=== PATIENT | male | born 1950 | race Caucasian/White ===

== ENCOUNTER 2020-05-13 13:50 | Outpatient (CLI) | payer MEDICAID, SELFPAY ==
--- NOTE | 2020-05-13 13:59 | CT_ITS ---
WS: [id number] CT ABDOMEN AND PELVIS NONCONTRAST HISTORY: HEMATURIA TECHNIQUE: Imaging performed through the abdomen and pelvis. Coronal and sagittal reformats are submi tted. All CT scans at [facility] use at least one of these dose optimization techniques: automated exposure control; mA and/or kV adjustment per patient size (includes targeted exams where d ose is matched to clinical indication); or iterative reconstruction. DLP: 1159.69 mGycm COMPARISON: None available. Lower thorax: Severe emphysematous changes at the lung bases with scarring. Heart size is normal. Sma ll hiatal hernia. Liver: Liver is slightly small and the surface is irregular. No mass or bile duct dilatation on this unenhanced study. Gallbladder: Cholelithiasis without evidence for acute cholecystitis. No bile duct dilatation. Pancreas: Mild diffuse pancreatic atrophy. Normal size duct. No mass or pancreatitis. Spleen: Normal size spleen with granulomata. Adrenal glands: Normal. No mass. Right kidney: Normal size kidney with no obstruction or calcification. Vascular calcification in the central renal pelvis. Ureter is normal caliber. Left kidney: Mild perinephric stranding with no obstruction. No calcifications. Normal ureter. Aorta: Moderate to severe atherosclerosis abdominal aorta. No aneurysm. Atherosclerosis continues int o the common iliac arteries. No free fluid, intraperitoneal air or significant lymphadenopathy. GI tract: The appendix is top normal size. No adjacent inflammation. No GI tract obstruction. Abdominal wall: Negative. No hernia. Pelvis: Moderately well distended urinary bladder. There is mild diffuse bladder wall thickening and irregularity. There is a more focal bladder wall thickening posteriorly and to the LEFT. There is a c alcification extending into the bladder which does not appear contiguous with the prostate gland. Pro state gland is enlarged and encroaches into the bladder. Osseous structures: Degenerative spondylitic changes. CT/CT kidney stone [id number] IMPRESSION: 1. No renal calcification or obstruction. 2. Abnormal urinary bladder wall. There is bladder wall thickening with an adj acent calcification to the LEFT and posteriorly. Bladder wall neoplasm needs to be excluded. 3. Prostate gland enlargement encroaching into the urinary bladder. The calcif ications and/or soft tissue thickening on the LEFT appears separate from the pr ostate gland. 4. Moderate atherosclerosis aorta. 5. Cholelithiasis without acute cholecystitis. 6. Severe emphysema at the lung bases.
== END 2020-05-13 13:51 | disposition home or self-care (01) ==
LOC: RADWPI 13:54
PROVIDERS: PCP Family Medicine; Visit Provider Family Medicine
DX: R31.9 Hematuria, unspecified (principal); N40.0 Benign prostatic hyperplasia without lower urinary tract symptoms; I70.0 Atherosclerosis of aorta; K80.20 Calculus of gallbladder without cholecystitis without obstruction; J43.9 Emphysema, unspecified
CPT/HCPCS: 74176

== ENCOUNTER → 2020-06-04 15:51 | Outpatient (BNVA) | payer OTHER, SELFPAY | PROVIDERS: PCP Family Medicine; Visit Provider Urology | DX: Z11.59 Encounter for screening for other viral diseases (principal) | CPT/HCPCS: 81001; 87635 ==

== ENCOUNTER 2020-06-10 08:07 | Observation (INO) | payer MEDICAID, SELFPAY ==
[2020-06-09 12:58] VITALS: BMI 25.1
[2020-06-10] VITALS (14 sets, daily range): BP systolic 121–147; BP diastolic 63–88; PULSE 48–77; RESP 15–18; TEMP 36.1–37.3; O2SAT 93–100
[2020-06-10] MEDS: sodium chloride 0.9% 1,000 ML 30 ML IV (06:22)
--- NOTE | 2020-06-10 06:28 | W.PM.OPSUD ---
Surgery/Procedure H&P Update DATE OF PROCEDURE: June 10, 2020 DATE H&P PERFORMED: 06/04/20 H&P UPDATE INFORMATION: I have reviewed H&P completed within last 30 days, I have examined patient prior to procedure, No changes to prior documentation and H&P is in [facility] EMR on date indicated CHANGES TO PREVIOUS DOCUMENTATION: Reviewed again the findings from the clinic. Discussed plans expectations follow-up with the who is present today To proceed as planned previously. PREOP DIAGNOSIS: Newly diagnosed bladder cancer PLANNED PROCEDURE: Operation Date: 06/10/20 07:00 Proposed Procedures p Cystoscopy 05255 D49.4(Not Applicable) - Fredrick Michale MD s Transurethral Resection Bladder Tumor(Not Applicable) - Fredrick Michael MD
--- NOTE | 2020-06-10 06:33 | P.ANESASSM_ITS ---
Pre-Anesthetic Assessment Pre-Anesthetic Assessment: Height/Weight: Height 1.75 m Weight 77.111 kg Temp Pulse Resp BP Pulse Ox 97.2 F L 60 16 132/79 95 06/10/20 06:07 06/10/20 06:07 06/10/20 06:07 06/10/20 06:07 06/10/20 06:07 Preop Diagnosis: Newly diagnosed bladder cancer Proposed Procedure: Operation Date: 06/10/20 07:00 Proposed Procedures p Cystoscopy 27907 D49.4(Not Applicable) - Fredrick Michael MD s Transurethral Resection Bladder Tumor(Not Applicable) - Fredrick Michael MD Familial anesthetic complications: none Was Beta Carrington taken within 24 hours: N/A Last intake: Intake Last Liquid Date 06/09/20 Last Liquid Time 20:00 Last Solid Date 06/09/20 Last Solid Time 20:00 Social: Social History: No alcohol and No tobacco Comment: former smoker Exam: Pre-Anes Outpt Exam: alert, oriented x 3, clear to auscultation bilaterally and regular rate & rhythm Airway: Cervical ROM: WNL MP: 3 Dentition: False and Partials Pulmonary: Pulmonary: COPD Anesthetic Plan: ASA status: 2 Anesthesia: General Risk of > 500 ml blood loss (7ml/kg in children): No Meds/Allergies Current Medications: Current Medications Generic Name Dose Route Start Last Admin Trade Name Freq PRN Reason Stop Dose Admin Sodium Chloride 1,000 mls @ 30 ml s/hr 06/10/20 06:15 06/10/20 06:22 Sodium Chloride 0.9% IV 06/11/20 06:14 30 mls/hr .Q24H JUAN Administration PFSH Anesthesia PFSH: Medical History COPD (chronic obstructive pulmonary disease) Gross hematuria Surgical History Hx of hernia repair Family History Father , at age 84 COPD (chronic obstructive pulmonary disease) Mother , at age 85 MRSA (methicillin resistant staph aureus) culture positive CAD (coronary artery disease) Social History Smoking and tobacco status: former smoker Alcohol intake: never Adopted: No Caregiver/support person: No Lives independently: Yes Marital status: Current occupational status: employed and retired 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
--- NOTE | 2020-06-10 06:34 | P.OP_ITS ---
Operative Report Date of procedure: June 10, 2020 Pre-op Diagnosis: Newly diagnosed bladder cancer Post-op diagnosis: same Procedure Done: Cystoscopy, transurethral resection of bladder tumor large Specimens removed/disposition: Bladder tumor Pathology: Bladder tumor Surgeon: Fernanda Anesthesia: General Estimated blood loss: Minimal Urine output: Not measured Complications: None Findings: 2 distinct areas of bladder tumor identified. One lateral to the left ureteral orifice and the second on the posterior floor. Both completely resected deeply into the bladder wall. Muscle visualized. Did not appear to be muscle invasive clinically. Condition: stable Disposition: PACU Brief History: Levar is a very pleasant 69-year-old white male who was recently evaluated for gross hematuria and with CT scan findings it demonstrated what appeared to be suspicious lesion in the bladder with dystrophic calcification. 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 Procedure: After routine preoperative evaluation examination and obtaining of informed consent he was taken to the operating suite on 06/10/2020 where general anesthesia was administered without difficulty after appropriate timeout was performed, SCDs confirmed to be functioning, preoperative antibiotics administered, beta-morenita protocol confirmed. Prepped and draped in usual sterile fashion in dorsolithotomy position pain careful attention to avoiding pressure points. 21 Faroese cystoscope with 30 degree lens was introduced into the urethral meatus and advanced into the bladder under videoscopy. Bladder was systematically examined with 30 and 70 degree lenses. The lesion was again identified in the expected position with appearance of satellite lesions around the base. There is also a second lesion on the posterior floor. Total diameter >5 cm. The urethra was calibrated with Hardy sounds and easily accommodated 30 Faroese. 2% lidocaine jelly was instilled into the urethra then a 25 Faroese continuous flow resectoscope sheath with visual obturator in place was advanced into the bladder without difficulty. The bipolar gyrus system was utilized with the super loop for resection and the button probe for fulguration of the base. Resection was initiated on the most intraluminal aspect of the tumor and it was resected down to the base with deep sampling of the muscle. The second tumor was resected in the same way. Satellite lesions were also resected. All chips were removed from the bladder with an Ellik evacuator. The button probe was used to obtain hemostasis with fulguration of the base. Final inspection revealed complete hemostasis, no additional lesions, no specimens within the bladder. Pathology was labeled as left trigone and posterior floor for the 2 separate specimens. Bladder was drained with a 20 Faroese three-way Britton catheter with no CBI initiated. Tolerated procedure well without complications and was awakened in the operating room and returned to Room in stable condition. PLANS: 1. Admit to observation status 2. Mitomycin instillation this afternoon 3. Expect discharge tomorrow if all goes well.
[2020-06-10] MEDS: lidocaine 2% Urojet 20 mL TOPICAL (07:13)
--- NOTE | 2020-06-10 08:10 | PM.PACU ---
PACU note Post-Anesthesia Exam: awake and vital signs stable Disposition: admitted
[2020-06-10] MEDS: lactated ringers 1,000 ML 30 ML IV (09:01)
[2020-06-10] MEDS: ceFAZolin 1,000 MG in sodium chloride 0.9% (plus) 50 ML 100 MG IV ×2 (15:04→22:54)
--- NOTE | 2020-06-10 18:39 | PM.MISC ---
Miscellaneous Note Purpose of Documentation: Intravesical chemotherapy instillation by physician: Mitomycin 40 mg instilled sterilely into the bladder. Both the drainage and irrigation port were plugged. Maintain for no more than 1 hour. Can drain sooner if becomes uncomfortable. Catheter will stay in overnight. Can restart CBI if urine becomes bloody. The procedure was explained in detail. Patient gave informed consent.
--- NOTE | 2020-06-10 19:05 | PC.NURSE ---
This nurse was able to pull the Mitomycin by using new Britton cath bag and tube. Said equipment was discarded in the [employer] bag. Patient tolerated well, no pain or discomfort.
[2020-06-11] VITALS (9 sets, daily range): BP systolic 104–134; BP diastolic 58–74; PULSE 60–79; RESP 18; TEMP 36.9–37.5; O2SAT 92–94
--- NOTE | 2020-06-11 00:51 | PC.NURSE ---
Patient is reporting no pain, and is having good UO.
--- NOTE | 2020-06-11 03:00 | ANE.PACU2 ---
Inpatient post-anesthesia follow up: Airway intact: Yes Vital signs: Temperature 98.4 F Pulse Rate 77 Respiratory Rate 18 Blood Pressure 122/68 Pulse Oximetry 92 Oxygen Delivery Me thod Room Air Oxygen Flow Rate 8 Fraction of Inspir ed Oxygen Hydration adequate: Yes Nausea and vomiting: No Pain level: 1 Mental status: Baseline Additional Comments: patient complaining only of dry throat
--- NOTE | 2020-06-11 06:34 | PC.NURSE ---
Patient has slept most of the night, has reported no pain, good UO, otherwise no discomfort related urinary system. Patient is eager to leave.
--- NOTE | 2020-06-11 07:33 | P.DS_ITS ---
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 Intraoperative findings included 2 areas resected with total >5 cm. On the evening of his surgery mitomycin 40 mg in 40 cc normal saline was instilled into the bladder and he tolerated it well for 40 minutes and then it was drained. Urine remained clear. Catheter removed on postoperative day #1 with good emptying and no significant hematuria. Discharged on the morning of postoperative day #1 in stable condition for continued convalescence at home. We will have a phone conversation next week to review the pathology report. Plan for surveillance cystoscopy in 2 months. Reviewed symptoms of concern for which she should call. Focused again discharge on the importance of avoiding straining which could induce bleeding. Physical Exam Const: COMMON NORMALS: no acute distress, alert and well nourished GENERAL APPEARANCE: well kempt and well developed ORIENTATION/CONSCIOUSNESS: not confused Neck/C-Spine: COMMON NORMALS: full ROM Resp: COMMON NORMALS: normal respiratory effort EFFORT & INSPECTION: No labored and No Actively coughing Neuro: COMMON NORMALS: no focal motor deficits SENSORIUM/ORIENTATION: Yes alert Psych: COMMON NORMALS: mental status grossly normal APPEARANCE: Yes grossly normal and Yes well kempt ATTITUDE: Yes calm and Yes engaged Skin: COMMON NORMALS: no rashes or lesions noted and no jaundice GENERAL SKIN EXAM: no rashes or lesions noted Urinary Catheter Management^: 3-way Urethral CBI: Cath Placed During This Visit: yes Reason for Continuing Indwelling Catheter: Other Urinary Catheter Date of Insertion: 06/10/20 Urinary Catheter Time of Insertion: 07:35 Discharge Data Data Completed and Pending: Pending at discharge Category Date Time Status Pathology: Surgic al [PTH] Routine Pth 06/10/20 08:10 Received Vitals: Last Vital Signs Temp 98.4 F 06/11/20 04:00 Pulse 77 06/11/20 04:00 Resp 18 06/11/20 04:00 BP 122/68 06/11/20 04:00 Pulse Ox 92 06/11/20 04:00 Discharge Plan Discharge Patient Disposition: Home Condition: Stable Prescriptions: Continued Trelegy Ellipta 100-62.5-25 mcg blister with device 1 inh INHALATION DAILY RF: 0 albuterol sulfate 0.63 mg/3 mL solution for nebulization 0.63 mg INHALATION QID PRN (Reason: Shortness Of Breath) RF: 0 antitrypsin 1,000 mg IV Q7D RF: 0 Discharge Orders: Discharge Order (Routine); Ordered 06/11/20 Ordered By: Fredrick Michael Referrals: Fredrick Michael MD [Physician] - 08/13/20 2:45 pm (Please follow with Dr Tobin TuesdayAugust 13 at 2:45 pm) Discharge Diet: Usual diet Discharge Activity: Limit activity as instructed Activity Restrictions/Additional Instructions: 1. Avoid lifting >10 pounds for about 3 weeks. If the urine becomes more bloody extend that interval. 2. Please call next week for review of pathology report if you have not already heard from my office 3. We will plan on rescoping your bladder in about 2 months. 4. It is possible that we may need to institute bladder instillation treatment for a more aggressive bladder cancer but that decision will be made on follow- up. 5. Please call if you have any concerns or questions. The hospital tree feller operator can always reach me. 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
--- NOTE | 2020-06-11 09:53 | PC.RESP ---
PULMONARY REHAB INFORMATION SENT TO PATIENT.
[2020-06-11] MEDS: lactated ringers 1,000 ML 30 ML IV (10:36)
--- NOTE | 2020-06-11 12:53 | PC.NURSE ---
1030 - patient Urinated a few drops of urine, hematuria was noted. approx. 10 ml. Bladder Scanned after void with 0ml in bladder. Will continue to closely montior. SMW, DIRECTOR OF GLOBAL TALENT
--- NOTE | 2020-06-11 13:29 | PC.NURSE ---
VOIDING: Patient voided 5th container with no hematuria present. Urine is clear light straw colored. BLadder scan is 97ml at this time. Dr. Michael notified and is ok for patient to discharge home. JOHNW,EDWARD
--- NOTE | 2020-06-11 14:08 | PC.CHAP ---
Pastoral Care Encounter/Spiritual Assessment Type of Contact [] Declined epic cadence analyst visit [] Patient/Family/Request visit [] Outpatient visit [] Follow-up visit [] Physician referral [] Code/Alert [X] Routine visit [] Staff referral [] Actively dying [] Patient sleeping [] Family support [] [] Out of room [] Palliative care [] [] Receiving care in room [] Pre-surgical visit [] Trauma [] Long length of stay [] ICU visit [] Other: Relational/Emotional Strength [] Patient feels connected with others/family/visitors/staff [] Distress [] Loneliness/isolation [] Abandonment Spirituality of Patient [] Person of Hyun [] Attends Scientologist of their Hyun [] Believes in Prayer [] Reads Bible or Judaism materials [] There are Spiritual issues to be addressed Salt Lifter Interventions [] Prayer [] Active listening [] Non-anxious presence [] Spiritual/emotional support [] Crisis/trauma care [] Spiritual counseling [] Bereavement support [] Provided bereavement packet [] Provided Bible/devotional materials [] Provided toy/stuffed animal, coloring book to patient or family member [] Provided Communion [] Anointing/Shipman [] Salvation [] Completed spiritual assessment [] Other: Impact on Illness or Injury [] Angry [] Fearful [] Anxious [] Often cries [] Exhaustion [] Unable to work [] Unable to attend druze [] Unable to walk/stand [] Unable to read [] Unable to drive [] Unable to eat/drink [] Unable to sleep [] Unable to be with family [] Patient intubated [] Other: Summary Time spent with patient
== END 2020-06-11 15:54 | disposition home or self-care (01) ==
LOC: MEDSURG 08:07
PROVIDERS: Admitting Provider Urology; PCP Family Medicine; Visit Provider Urology
PROC: 0TJB8ZZ Inspection of Bladder, Via Natural or Artificial Opening Endoscopic (ICD-10-PCS; CPT 52000; 2020-06-10 07:00)
PROC: 0TBB8ZZ Excision of Bladder, Via Natural or Artificial Opening Endoscopic (ICD-10-PCS; CPT 52240; 2020-06-10 07:00)
DX: C67.8 Malignant neoplasm of overlapping sites of bladder (principal); J44.9 Chronic obstructive pulmonary disease, unspecified; Z87.891 Personal history of nicotine dependence
CPT/HCPCS: 52240; 12345; 88305; 94640; 96361; 96365; G0378; J0690; J2405; J2704; J2710; J3010; J3490; J7030; J7611; J9280

== ENCOUNTER 2020-07-11 06:58 | Outpatient (CLI) | payer MEDICAID, SELFPAY ==
--- NOTE | 2020-07-11 08:00 | CT_ITS ---
WS: [id number] CT ABDOMEN PELVIS TECHNIQUE: Noncontrast CT of the abdomen and contrast-enhanced CT of the abdomen and pelvis with magan nal and sagittal reformatted images. CLINICAL INFORMATION: BLADDER CANCER COMPARISON: CT May 13, 2020 DLP: 1032.[address] scans at [facility] use at least one of these dose optimization techniques: automat ed exposure control; mA and/or kV adjustment per patient size (includes targeted exams where dose is matched to clinical indication); or iterative reconstruction. FINDINGS: Again seen is bladder wall thickening with calcification eccentric to the left involving the dorsal l eft bladder. Findings suspicious for bladder neoplasm. This is similar to the prior examination. Hete rogeneous enhancing enlarged nodular prostate with indentation on the urinary bladder. Recommend santiago elation for PSA. Seminal vesicles appear unremarkable. Normal renal parenchymal enhancement. No hydronephrosis. Adrenal glands are normal. Advanced emphysem atous changes in the lung bases. Subsegmental atelectasis in both lower lobes. Noncalcified nodule le ft lower lobe measuring 4.4 mm diffuse fatty infiltration of the liver. Normal portal vein and spleni c vein. Cholelithiasis. Splenic granulomas. Small esophageal hiatal hernia. Mild fatty atrophy of the pancreas. Aortic calcification. Slightly prominent aortocaval lymph nodes measuring 8 mm. No periaor tic or retroperitoneal lymphadenopathy. No pelvic lymphadenopathy. No inguinal lymphadenopathy. Normal sigmoid colon. No evidence of high-grade obstruction. Normal appendix. CT/CT abdomen pelvis wo/w [id number] IMPRESSION: 1. Again seen is left eccentric bladder wall thickening with calcifications tijerina spicious for neoplasm. This is similar in appearance. 2. Heterogeneously enhancing nodular enlarged prostate with indentation on the bladder.Correlation PSA. Normal seminal vesicles. 3. No pelvic or inguinal lymphadenopathy. 4. A few slight prominent aortocaval lymph nodes largest measuring 8 mm. 5. Cholelithiasis. 6. Normal renal parenchymal enhancement. No hydronephrosis. 7. 4.4 mm left lower lobe noncalcified pulmonary nodule. Recommend 12 month fo llow-up.
[2020-07-11 08:03] LABS: Blood Urea Nitrogen 24 mg/dL (8-23); Glomerular Filtration Rate 50.2 mL/min (90-130)
[2020-07-11] MEDS: iodixanol 320 mg/mL 100mL Btl IV (08:32)
== END 2020-07-11 06:59 | disposition home or self-care (01) ==
PROVIDERS: PCP Family Medicine; Visit Provider Urology
DX: C67.4 Malignant neoplasm of posterior wall of bladder (principal); N40.0 Benign prostatic hyperplasia without lower urinary tract symptoms; K80.20 Calculus of gallbladder without cholecystitis without obstruction; R91.1 Solitary pulmonary nodule
CPT/HCPCS: 36415; 74178; 81003; 82565; 84520

== ENCOUNTER 2020-07-16 10:00 | Outpatient (CLI) | payer MEDICAID, SELFPAY ==
--- NOTE | 2020-07-16 15:26 | ONC CON_ITS ---
Dr. Vega New Patient Note Patient: Levar Fitzgerald Unit #: [id number]: 1950 Dicatated By: Carey Vega M.D.Date of Visit: Jul 16, 2020 Onc MED New Patient/Consult Referring Physician: Dr. Fredrick Michael M.D. History of Present Illness: Mr. Levar Fitzgerald, is a 69-year-old gentleman with history of gross hematuria initially seen by urology on June 04, [address] scan of abdomen pelvis shows bladder mass and patient underwent cystoscopy/TURBT on June 10, 2020 and intraoperative findings include 2 areas of transitional cell carcinoma, one lateral to the left ureteral orifice and other on the posterior floor. 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 CT scan of abdomen pelvis done on July 11, 2020 showed left eccentric bladder wall thickening with calcification suspicious for neoplasm. Heterogeneously enhancing nodular enlarged prostate with indentation on the bladder. Normal seminal vesicles. A few slight prominent aorto caval lymph nodes largest measuring 8 mm. 4.4 mm left upper lobe noncalcified pulmonary nodule follow-up scan in 12 months recommended. Patient was seen by Dr. Michael different treatment options were discussed, patient was referred to oncology clinic to discuss about role of chemotherapy and other options including bladder preservation and neoadjuvant chemotherapy. Patient denies any hematuria denies any lower abdominal pain denies any diarrhea or constipation denies any nausea or vomiting denies any fever chills denies any jaundice denies any hemoptysis or hematemesis. Patient has history of 55-year plus smoking quit about 5 years ago because of COPD, denies alcohol use. Past Medical History: Mr. Fitzgerald's medical history consists of chronic obstructive pulmonary disease. Past Surgical History: Mr. Angel surgical/procedural history consists of bladder tumor removal and hernia repair. Medications: Albuterol Sulfate 1 Puff(s) (of (2.5 mg/3ml) 0.083%) Nebulization solution Inhalation PRN, Albuterol Sulfate 1 Puff(s) (of 108 (90 base) mcg/act) Aerosol Powder, Breath Activated Inhalation PRN, Tamsulosin HCl 1 Capsule (of 0.4 mg) Oral daily, Trelegy Ellipta 1 Puff(s) (of 100-62.5-25 mcg/inh) Aerosol Powder, Breath Activated Inhalation daily Allergies: levoFLOXacin Social History: Mr. Fitzgerald is single and he is an unknown. Mr. Fitzgerald no longer smokes. He has no history of drinking. Family History: Mr. Vargass mother at age 85: coronary artery disease. Mr. Vargass father at age 84: chronic obstructive pulmonary disease. Review Of Symptoms: Constitutional - Appetite is good and weight is stable. No fever, night sweats, or hot flashes. Energy level is good, ENMT - No sinus congestion/drainage. No mouth sores. No sore throat or difficulty swallowing, Hematologic/Lymphatic - No abnormal bruising or bleeding, Respiratory - Positive for shortness of breath. No cough. No pleuritic pain or hemoptysis, Cardiovascular - No angina pain. No palpitations, Gastrointestinal - No nausea or vomiting. No heartburn or acid reflux. No diarrhea or constipation. No blood in the stool or black stools, Genitourinary (M) - No dysuria or hematuria. No urinary frequency. No urgency or incontinence, Musculoskeletal - No joint or bone pain, Neurologic - No headache or dizziness. No numbness or tingling. No other focal neurologic symptoms, Psychiatric - No anxiety or depression. No insomnia. Vital Signs: Performed on Jul 16, 2020 10:52: 0, 25.05, 1.93 sq.m, 69.00 in, 97 %, 81 /min, 24 /min, 113/69 mm(hg), 98.4 F, and 169.6 lbs (HIGH). Performance Status: 0 - Fully active, able to carry on all predisease activities without restrictions. (ECOG) Physical Examination: ENMT - No mouth sores, no thrush, no jaundice, Respiratory - Lungs are clear to auscultation, Cardiovascular - Regular rate and rhythm of heart, Abdomen - Soft, bowel sounds present, Extremities - No visible edema or rash. Lab/Imaging: Most recent lab results are not available for this patient. Impression: Muscle invasive high-grade invasive urothelial carcinoma, nested clear-cell variant with lamina propria invasion per TURBT/cystoscopy done on June 10, 2020 CT scan of abdomen pelvis done on July 11, 2020 showed no pelvic or inguinal lymphadenopathy, and left eccentric bladder wall thickening with calcifications suspicious for neoplasm. Heterogeneous enhancing nodular enlarged prostate with indentation on the bladder. 4.4 mm left lower lobe noncalcified pulmonary nodule follow-up CT scan in 12 months recommended COPD, 50+ years history of smoking, quit 5 years ago Plan: Discussed with patient regarding his disease status and various treatment options, as per NCCN guidelines in patients with muscle invasive bladder cancer if patient has localized disease with no evidence of carcinoma in situ or multifocal involvement, bladder preservation can be considered after maximal resection via TURBT, on the other hand in , multifocal disease or carcinoma in situ involvement, neoadjuvant chemotherapy with dose dense MVAC 3-4 cycles followed by cystectomy is a standard of care. Patient is exploring his options, at this point will refer him to radiation oncology for evaluation regarding bladder preservation and also refer him to Dr. Clay, urologist in [facility] for evaluation regarding cystectomy., Patient will return to clinic in 3 weeks with CBC CMP for further discussion Signed By: Carey Vega M.D. <<Signature on File>>
== END 2020-07-16 10:01 | disposition home or self-care (01) ==
LOC: ONCMED 10:01
PROVIDERS: PCP Family Medicine; Visit Provider Internal Medicine Hematology & Oncology
DX: C67.8 Malignant neoplasm of overlapping sites of bladder (principal); J44.9 Chronic obstructive pulmonary disease, unspecified; Z87.891 Personal history of nicotine dependence
CPT/HCPCS: 99203

== ENCOUNTER 2020-08-07 15:26 | Outpatient (CLI) | payer MEDICARE, MEDICAID, SELFPAY ==
[2020-08-07 15:43] LABS: Basophils % 0.2 %; Eosinophils % 0.1 %; Hematocrit 40.2 % (42.0-52.0); Hemoglobin 13.6 g/dL (11.7-16.6); Lymphocytes # 1.2 10^3/uL (0.8-4.8); Lymphocytes % 10.8 %; Mean Corpuscular HGB Conc 33.8 g/dL (30.0-36.0); Mean Corpuscular Hemoglobin 30.1 pg (28.0-34.0); Mean Corpuscular Volume 88.9 fL (80-94); Mean Platelet Volume 10.9 fL (7.4-10.4); Monocytes # 0.5 10^3/uL (0.2-0.9); Monocytes % 4.4 %; Neutrophils # 9.45 10^3/uL (1.8-7.7); Neutrophils % 83.6 %; Nucleated Red Blood Cells % 0 %; Platelet Count 290 10^3/cmm (130-400); Red Blood Count 4.52 10^6/uL (4.1-5.3); Red Cell Distribution Width 14.2 % (12.1-15.1); White Blood Count 11.3 10^3/uL (4.0-10.0)
[2020-08-07 16:20] LABS: Alanine Aminotransferase 20 U/L (0-41); Albumin Level 3.9 g/dL (3.5-5.2); Alkaline Phosphatase 77 IU/L (40-130); Anion Gap 15.9 (5-19); Aspartate Amino Transferase 12 U/L (0-40); Blood Urea Nitrogen 23 mg/dL (8-23); Calcium 9.3 mg/dL (8.5-10.5); Carbon Dioxide 25 mmol/L (22-29); Chloride 103 mmol/L (98-107); Globulin 2.2 g/dL (1.3-4.6); Glomerular Filtration Rate 74.1 mL/min (90-130); Glucose 133 mg/dL (65-115); Osmolality Calculated 294 mOsm/kg (285-295); Potassium 4.9 mmol/L (3.5-5.1); Sodium 139 mmol/L (136-145); Total Bilirubin 0.5 mg/dL (0.15-1.2); Total Protein 6.1 g/dL (6.6-8.7)
--- NOTE | 2020-08-07 17:02 | ONC FU_ITS ---
Dr. Vega follow up note Patient: Levar Fitzgerald Unit #: [id number]: 1950 Dicatated By: Carey Vega M.D.Date of Visit:Aug 07, 2020 Onc Med Follow-up/Prog Note History of Present Illness: Mr. Levar Fitzgerald, is a 69-year-old gentleman with history of gross hematuria initially seen by urology on June 04, [address] scan of abdomen pelvis shows bladder mass and patient underwent cystoscopy/TURBT on June 10, 2020 and intraoperative findings include 2 areas of transitional cell carcinoma, one lateral to the left ureteral orifice and other on the posterior floor. 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 CT scan of abdomen pelvis done on July 11, 2020 showed left eccentric bladder wall thickening with calcification suspicious for neoplasm. Heterogeneously enhancing nodular enlarged prostate with indentation on the bladder. Normal seminal vesicles. A few slight prominent aorto caval lymph nodes largest measuring 8 mm. 4.4 mm left upper lobe noncalcified pulmonary nodule follow-up scan in 12 months recommended. Patient was seen by Dr. Michael different treatment options were discussed, patient was referred to oncology clinic to discuss about role of chemotherapy and other options including bladder preservation and neoadjuvant chemotherapy. Patient denies any hematuria denies any lower abdominal pain denies any diarrhea or constipation denies any nausea or vomiting denies any fever chills denies any jaundice denies any hemoptysis or hematemesis. Patient has history of 55-year plus smoking quit about 5 years ago because of COPD, denies alcohol use. Came for follow-up, denies any specific complaints, no fever chills, no nausea or vomiting, no diarrhea or constipation, no abdominal pain or back pain. Patient was referred to Dr. Clay in [facility], where he underwent CT urogram on July 23, 2020 which showed mild asymmetric urinary bladder wall thickening along the left posterior lateral aspect. No suspicious renal lesion. Nonspecific 3 mm left lower lobe pulmonary nodule. Lobulated enhancing mass in the terminal ileum and ascending colon, as per patient he was referred to gastroenterology for colonoscopy to evaluate this colon mass. Patient said he had extensive discussion with Dr. Clay regarding treatment options and, what he understood the Dr. Clay will review his pathology slides with his pathologist and if it confirm he has muscle invasive disease then patient was recommended to proceed with systemic chemotherapy with dose dense MVAC every 2 weeks x3 cycle followed by cystectomy but patient is somewhat reluctant, and he is here for further discussion regarding other treatment options like bladder preservation with combined chemoradiation therapy. Medications: Albuterol Sulfate 1 Puff(s) (of (2.5 mg/3ml) 0.083%) Nebulization solution Inhalation PRN, Albuterol Sulfate 1 Puff(s) (of 108 (90 base) mcg/act) Aerosol Powder, Breath Activated Inhalation PRN, Tamsulosin HCl 1 Capsule (of 0.4 mg) Oral daily, Trelegy Ellipta 1 Puff(s) (of 100-62.5-25 mcg/inh) Aerosol Powder, Breath Activated Inhalation daily Allergies: levoFLOXacin Review of Systems: Constitutional - Appetite is good and weight is stable. No fever, night sweats, or hot flashes. Energy level is good, ENMT - No sinus congestion/drainage. No mouth sores. No sore throat or difficulty swallowing, Hematologic/Lymphatic - No abnormal bruising or bleeding, Respiratory - Positive for shortness of breath. No cough. No pleuritic pain or hemoptysis, Cardiovascular - No angina pain. No palpitations, Gastrointestinal - No nausea or vomiting. No heartburn or acid reflux. No diarrhea or constipation. No blood in the stool or black stools, Genitourinary (M) - No dysuria or hematuria. No urinary frequency. No urgency or incontinence, Musculoskeletal - No joint or bone pain, Neurologic - No headache or dizziness. No numbness or tingling. No other focal neurologic symptoms, Psychiatric - No anxiety or depression. No insomnia. Vital Signs: Performed on Aug 07, 2020 15:48 Height - 69.00 in Weight - 177.8 lbs (HIGH) BSA - 1.96 sq.m BMI - 26.26 Temperature - 99.2 F (HIGH) Pulse - 61 /min Respiration - 24 /min BP - 113/70 mm(hg) O2 Sat - 97 % Pain - 0 Performance Status: 0 - Fully active, able to carry on all predisease activities without restrictions. (ECOG) Physical Examination: ENMT - No mouth sores, no thrush, no jaundice, Respiratory - Lungs are clear to auscultation, Cardiovascular - Regular rate and rhythm of heart, Abdomen - Soft, bowel sounds present, Extremities - No visible edema or rash. Lab/Imaging: Most recent lab results are not available for this patient. Impression: Muscle invasive high-grade invasive urothelial carcinoma, nested clear-cell variant with lamina propria invasion per TURBT/cystoscopy done on June 10, 2020 CT scan of abdomen pelvis done on July 11, 2020 showed no pelvic or inguinal lymphadenopathy, and left eccentric bladder wall thickening with calcifications suspicious for neoplasm. Heterogeneous enhancing nodular enlarged prostate with indentation on the bladder. 4.4 mm left lower lobe noncalcified pulmonary nodule follow-up CT scan in 12 months recommended COPD, 50+ years history of smoking, quit 5 years ago Plan: Discussed with patient regarding his labs white blood count 11.3 hemoglobin 13.6 hematocrit 40.2 platelets 290,000 CMP within normal limits Clinically, patient is doing well with no new signs symptoms, patient has seen Dr. Clay in [facility] and as per patient he is waiting for second opinion on his pathology report as Dr. Clay was waiting for slides from [place]. As per patient, he is reluctant to consider cystectomy and may prefer bladder preservation with combined chemoradiation. But patient is waiting for second opinion on his pathology report if it confirm muscle invasive disease then he will discuss with Dr. Clay regarding both treatment options which include neoadjuvant chemotherapy with dose dense MVAC followed by cystectomy and bladder preservation with combined chemoradiation. Patient return to clinic in a week hopefully by that time he will have second opinion regarding his pathology and at that time will discuss with him regarding treatment options and related pros and cons. Patient had a CT urogram done in [facility] which showed lobulated mass in the terminal ileum and ascending colon for which he is being referred to GI for colonoscopy. Signed By: Carey Vega M.D. <<Signature on File>>
== END 2020-08-07 15:27 | disposition home or self-care (01) ==
PROVIDERS: PCP Family Medicine; Visit Provider Internal Medicine Hematology & Oncology
DX: C67.8 Malignant neoplasm of overlapping sites of bladder (principal); J44.9 Chronic obstructive pulmonary disease, unspecified; Z87.891 Personal history of nicotine dependence
CPT/HCPCS: 36415; 80053; 85025; 99214

== ENCOUNTER 2020-08-13 05:38 | Outpatient (CLI) | payer MEDICARE, MEDICAID, SELFPAY | END 2020-08-13 05:39 | disposition home or self-care (01) | LOC: ONCMED 05:40 | PROVIDERS: PCP Family Medicine; Visit Provider Nurse Practitioner | DX: Z20.828 Contact with and (suspected) exposure to other viral communicable diseases (principal) | CPT/HCPCS: 87635 ==

== ENCOUNTER 2020-08-19 07:33 | Day surgery (SDC) | payer MEDICARE, MEDICAID, SELFPAY ==
[2020-08-19 07:49] VITALS: BP 108/84; PULSE 71; RESP 18; O2SAT 95
[2020-08-19] MEDS: sodium chloride 0.9% 1,000 ML 30 ML IV (08:08)
--- NOTE | 2020-08-19 08:26 | W.PM.OPSUD ---
Surgery/Procedure H&P Update DATE OF PROCEDURE: August 19, 2020 DATE H&P PERFORMED: 07/25/20 H&P UPDATE INFORMATION: I have reviewed H&P completed within last 30 days, I have examined patient prior to procedure and No changes to prior documentation PREOP DIAGNOSIS: diagnostic PLANNED PROCEDURE: Operation Date: 08/19/20 08:30 Proposed Procedures p Colonoscopy 70843 z12.11(Not Applicable) - Michael Junior MD
--- NOTE | 2020-08-19 08:31 | ANES.PREANE2 ---
Pre-Anesthetic Assessment Pre-Anesthetic Assessment: Height/Weight: Height 1.75 m Weight 77.111 kg Pulse Resp BP Pulse Ox 71 18 108/84 95 08/19/20 07:49 08/19/20 07:49 08/19/20 07:49 08/19/20 07:49 Preop Diagnosis: diagnostic Proposed Procedure: Operation Date: 08/19/20 08:30 Proposed Procedures p Colonoscopy 45888 z12.11(Not Applicable) - Michael Junior MD Was Beta Carrington taken within 24 hours: N/A Last intake: Intake Last Liquid Date 08/18/20 Last Liquid Time 19:00 Last Solid Date 08/18/20 Last Solid Time 12:00 Social: Social History: No alcohol and No tobacco Exam: Pre-Anes Outpt Exam: alert, oriented x 3, clear to auscultation bilaterally and regular rate & rhythm Airway: Submandibular: WNL Cervical ROM: WNL MP: 1 Dentition: Partials Pulmonary: Pulmonary: COPD CV/HEM: CV/HEM: None reported : : None reported Hepatic: Hepatic: None reported GI: GI: None reported Metabolic: Metabolic: None reported Musc/skel: Musc/skel: None reported Neuropsych: Neuropsych: None reported Anesthetic Plan: ASA status: 3 Anesthesia: MAC Meds/Allergies Current Medications: Current Medications Generic Name Dose Route Start Last Admin Trade Name Freq PRN Reason Stop Dose Admin Sodium Chloride 1,000 mls @ 30 ml s/hr 08/19/20 08:00 08/19/20 08:08 Sodium Chloride 0.9% IV 08/20/20 07:59 30 mls/hr .Q24H JUAN Administration PFSH Anesthesia PFSH: Medical History 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 COPD (chronic obstructive pulmonary disease) Surgical History H/O circumcision H/O colonoscopy with polypectomy 1997 Hx of hernia repair Status post surgical removal and fulguration of bladder neoplasm Family History Father , at age 84 COPD (chronic obstructive pulmonary disease) Mother , at age 85 MRSA (methicillin resistant staph aureus) culture positive CAD (coronary artery disease) Denies family history of Anesthesia complication Bleeding disorder Cancer Social History Smoking and tobacco status: former smoker Alcohol intake: never Adopted: No Caregiver/support person: No Lives independently: Yes Marital status: Current occupational status: employed and retired 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
[2020-08-19 09:08] VITALS: BP 110/79; PULSE 74; RESP 18; TEMP 36.1; O2SAT 98
[2020-08-19 09:21] VITALS: BP 114/76; PULSE 73; RESP 18; O2SAT 96
--- NOTE | 2020-08-19 11:10 | ANE.PACU2 ---
Inpatient post-anesthesia follow up: Airway intact: Yes Vital signs: Temperature 97 F Pulse Rate 73 Respiratory Rate 18 Blood Pressure 114/76 Pulse Oximetry 96 Oxygen Delivery Me thod Nasal Cannula Oxygen Flow Rate 3 Fraction of Inspir ed Oxygen Hydration adequate: Yes Nausea and vomiting: No Pain level: 1 Mental status: Baseline
== END 2020-08-19 09:29 | disposition home or self-care (01) ==
PROVIDERS: PCP Family Medicine; Visit Provider Surgery
PROC: 0DJD8ZZ Inspection of Lower Intestinal Tract, Via Natural or Artificial Opening Endoscopic (ICD-10-PCS; CPT 45378; principal; 2020-08-19 08:30)
DX: R93.3 Abnormal findings on diagnostic imaging of other parts of digestive tract (principal); D12.0 Benign neoplasm of cecum; D12.5 Benign neoplasm of sigmoid colon; D12.3 Benign neoplasm of transverse colon; C67.4 Malignant neoplasm of posterior wall of bladder; J44.9 Chronic obstructive pulmonary disease, unspecified; Z87.891 Personal history of nicotine dependence
CPT/HCPCS: 12345; 45380; 45385; 88305; J2704; J7030

== ENCOUNTER 2020-09-09 14:45 | Outpatient (CLI) | payer MEDICARE, MEDICAID, SELFPAY ==
--- NOTE | 2020-09-09 | XRR_ITS ---
PROCEDURE INFORMATION: Exam: XR Chest, 2 Views Exam date and time: 09/09/2020 4:03 PM Age: 69 years old Clinical indication: Condition or disease; Lung condition and disease; Copd; Complications not specified TECHNIQUE: Imaging protocol: XR of the chest Views: 2 views. Total images: 2 COMPARISON: No relevant prior studies available. FINDINGS: Lungs: COPD/chronic bronchitis/emphysema. No visible active interstitial or alveolar airspace disease. Pleural space: Unremarkable. No pleural effusion. No pneumothorax. Heart/Mediastinum: Cardiac structures and configuration with arteriosclerosis. Microcardia. Bones/joints: Old right rib fractures. Degenerative disease of the spine. XR/XR chest 2V* [id number] IMPRESSION: COPD/chronic bronchitis/emphysema.
[2020-09-09 16:29] LABS: Basophils # 0.1 10^3/uL (0.0-0.1); Basophils % 0.9 %; Eosinophils # 0.2 10^3/uL (0.0-0.8); Eosinophils % 2.4 %; Hematocrit 45.9 % (42.0-52.0); Hemoglobin 14.8 g/dL (11.7-16.6); Lymphocytes # 2.3 10^3/uL (0.8-4.8); Lymphocytes % 33.8 %; Mean Corpuscular HGB Conc 32.2 g/dL (30.0-36.0); Mean Corpuscular Hemoglobin 29.7 pg (28.0-34.0); Monocytes # 0.6 10^3/uL (0.2-0.9); Monocytes % 8.7 %; Neutrophils # 3.57 10^3/uL (1.8-7.7); Neutrophils % 53.7 %; Nucleated Red Blood Cells % 0 %; Platelet Count 242 10^3/cmm (130-400); Red Blood Count 4.99 10^6/uL (4.1-5.3); Red Cell Distribution Width 13.2 % (12.1-15.1); White Blood Count 6.7 10^3/uL (4.0-10.0)
--- NOTE | 2020-09-09 16:54 | ECG_ITS ---
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
[2020-09-09 17:13] LABS: Alanine Aminotransferase 21 U/L (0-41); Albumin Level 4.1 g/dL (3.5-5.2); Alkaline Phosphatase 84 IU/L (40-130); Aspartate Amino Transferase 23 U/L (0-40); Blood Urea Nitrogen 24 mg/dL (8-23); Calcium 9.5 mg/dL (8.5-10.5); Carbon Dioxide 25 mmol/L (22-29); Chloride 101 mmol/L (98-107); Globulin 2.6 g/dL (1.3-4.6); Glomerular Filtration Rate 50.2 mL/min (90-130); Glucose 94 mg/dL (65-115); Osmolality Calculated 288 mOsm/kg (285-295); Sodium 137 mmol/L (136-145); Total Bilirubin 0.4 mg/dL (0.15-1.2); Total Protein 6.7 g/dL (6.6-8.7)
[2020-09-09 17:17] LABS: Anion Gap 15.5 (5-19); Potassium 4.5 mmol/L (3.5-5.1)
== END 2020-09-09 14:46 | disposition home or self-care (01) ==
PROVIDERS: PCP Family Medicine; Visit Provider Urology
DX: Z01.812 Encounter for preprocedural laboratory examination (principal); J44.9 Chronic obstructive pulmonary disease, unspecified; C67.9 Malignant neoplasm of bladder, unspecified
CPT/HCPCS: 36415; 71046; 80053; 85025; 87635; 93005

== ENCOUNTER 2021-05-12 08:42 | Outpatient (CLI) | payer MEDICARE, MEDICAID, SELFPAY ==
--- NOTE | 2021-05-12 09:00 | CT_ITS ---
WS: [id number] CT ABDOMEN PELVIS TECHNIQUE: Noncontrast CT of the abdomen and contrast-enhanced CT of the abdomen and pelvis with magan nal and sagittal reformatted images. CLINICAL INFORMATION: BLADDER CANCER COMPARISON: CT July 2020 and May 2020 DLP: 1798.[address] scans at [facility] use at least one of these dose optimization techniques: automated e xposure control; mA and/or kV adjustment per patient size (includes targeted exams where dose is matc hed to clinical indication); or iterative reconstruction. FINDINGS: Soft tissue nodule right lower quadrant adjacent to the cecum and ileocecal valve with calc ification. Adjacent involvement of the wall of the cecum. This measures approximately 3.3 x 1.7 CM. T his appears progressed compared to the prior examinations. This can be further evaluated with colonos copy and/or PET/CT. Findings suspicious for bowel neoplasm or possibly carcinoid. Associated luminal narrowing in this area. Previously described bladder wall neoplasm has resolved. No suspicious bladder wall lesions today. He terogeneous enhancing enlarged nodular prostate with indentation on the urinary bladder. Recommend co rrelation for PSA. Seminal vesicles appear unremarkable. Normal renal parenchymal enhancement. No hydronephrosis. Adrenal glands are normal. Advanced emphysem atous changes in the lung bases. Subsegmental atelectasis in both lower lobes. Noncalcified nodule le ft lower lobe measuring 5 mm appears stable. Diffuse fatty infiltration of the liver. Normal portal v ein and splenic vein. Cholelithiasis. Splenic granulomas. Small esophageal hiatal hernia. Mild fatty atrophy of the pancreas. Aortic calcif ication. Slightly prominent aortocaval lymph nodes measuring 8 mm unchanged. No periaortic or retrope ritoneal lymphadenopathy. No pelvic lymphadenopathy. No inguinal lymphadenopathy. Normal sigmoid colo n. No evidence of high-grade obstruction. Normal appendix CT/CT abdomen pelvis wo/w [id number] IMPRESSION: 1. Previously described left eccentric bladder wall thickening appears to have resolved compared to the prior examination. No suspicious bladder lesions toda y. 2. Ovoid soft tissue lesion involving the wall of the right colon and ileoceca l valve measuring 3.3 x 1.7 cm with suggestion of a tiny amount of calcificatio n. Findings suspicious for bowel neoplasm or carcinoid. Recommend further evalu ation with colonoscopy and/or PET/CT. 3. No pelvic or inguinal lymphadenopathy. 4. Stable enhancing nodular prostate with indentation on the bladder. 5. Stable slightly prominent aortocaval lymph nodes. 6. Cholelithiasis. 7. Noncalcified nodule left lower lobe measuring 5 mm appears stable.
[2021-05-12 09:31] LABS: Blood Urea Nitrogen 20 mg/dL (8-23); Glomerular Filtration Rate 59.9 mL/min (90-130)
[2021-05-12] MEDS: iohexol 300 mg/mL 100 mL Btl IV (09:46)
== END 2021-05-12 08:43 | disposition home or self-care (01) ==
LOC: CT 08:45
PROVIDERS: PCP Family Medicine; Visit Provider Urology
DX: C67.4 Malignant neoplasm of posterior wall of bladder (principal); R91.1 Solitary pulmonary nodule; K80.20 Calculus of gallbladder without cholecystitis without obstruction; R33.8 Other retention of urine
CPT/HCPCS: 36415; 74178; 81003; 82565; 84520; 87077; 87086; 87184

== ENCOUNTER → 2021-06-07 09:28 | Outpatient (BNVA) | payer MEDICARE, MEDICAID, SELFPAY | PROVIDERS: PCP Family Medicine; Visit Provider Nurse Practitioner Family | DX: R39.9 Unspecified symptoms and signs involving the genitourinary system (principal); R82.71 Bacteriuria | CPT/HCPCS: 81000 ==

== ENCOUNTER → 2021-08-11 10:17 | Outpatient (BNVA) | payer MEDICARE, MEDICAID, SELFPAY | PROVIDERS: PCP Family Medicine; Visit Provider Urology | DX: N40.1 Benign prostatic hyperplasia with lower urinary tract symptoms (principal); C67.0 Malignant neoplasm of trigone of bladder; C67.4 Malignant neoplasm of posterior wall of bladder | CPT/HCPCS: 81003 ==

== ENCOUNTER → 2021-09-19 09:18 | Outpatient (BNVA) | payer MEDICARE, MEDICAID, SELFPAY | PROVIDERS: PCP Family Medicine; Visit Provider Nurse Practitioner Family | DX: Z20.822 Contact with and (suspected) exposure to COVID-19 (principal); R68.89 Other general symptoms and signs | CPT/HCPCS: 87400; 87635 ==

== ENCOUNTER → 2022-01-15 11:08 | Outpatient (BNVA) | payer MEDICARE, MEDICAID, SELFPAY | PROVIDERS: PCP Family Medicine; Visit Provider Urology | DX: N40.1 Benign prostatic hyperplasia with lower urinary tract symptoms (principal); C67.0 Malignant neoplasm of trigone of bladder; C67.4 Malignant neoplasm of posterior wall of bladder | CPT/HCPCS: 51798; 52000; 81003 ==

== ENCOUNTER → 2022-01-19 09:36 | Outpatient (BNVA) | payer MEDICARE, MEDICAID, SELFPAY | PROVIDERS: PCP Family Medicine; Visit Provider Emergency Medicine | DX: M10.072 Idiopathic gout, left ankle and foot (principal); F34.1 Dysthymic disorder | CPT/HCPCS: 80048; 84550 ==

== ENCOUNTER → 2022-02-10 11:41 | Outpatient (BNVA) | payer MEDICARE, MEDICAID, SELFPAY | PROVIDERS: PCP Family Medicine; Visit Provider Emergency Medicine | DX: C67.4 Malignant neoplasm of posterior wall of bladder (principal); R53.83 Other fatigue; R33.8 Other retention of urine; R82.71 Bacteriuria; N39.0 Urinary tract infection, site not specified | CPT/HCPCS: 80053; 81000; 82607; 84443; 85025; 87077; 87086; 87184 ==

== ENCOUNTER → 2022-05-17 13:25 | Outpatient (BNVA) | payer MEDICARE, MEDICAID, SELFPAY | PROVIDERS: PCP Family Medicine; Visit Provider Urology | DX: C67.0 Malignant neoplasm of trigone of bladder (principal); C67.4 Malignant neoplasm of posterior wall of bladder; N40.1 Benign prostatic hyperplasia with lower urinary tract symptoms | CPT/HCPCS: 51798; 52000; 99212 ==

== ENCOUNTER → 2022-05-31 10:25 | Outpatient (BNVA) | payer MEDICARE, MEDICAID, SELFPAY | PROVIDERS: PCP Family Medicine; Visit Provider Urology | DX: N40.1 Benign prostatic hyperplasia with lower urinary tract symptoms (principal); C67.0 Malignant neoplasm of trigone of bladder; C67.4 Malignant neoplasm of posterior wall of bladder | CPT/HCPCS: 81003 ==

== ENCOUNTER → 2022-09-16 15:20 | Outpatient (BNVA) | payer MEDICARE, MEDICAID, SELFPAY | PROVIDERS: PCP Family Medicine; Visit Provider Urology | DX: C67.4 Malignant neoplasm of posterior wall of bladder (principal); C67.0 Malignant neoplasm of trigone of bladder; N40.1 Benign prostatic hyperplasia with lower urinary tract symptoms | CPT/HCPCS: 51798; 52000; 81003 ==

== ENCOUNTER 2023-02-15 15:12 | Inpatient (IN) | payer MEDICARE, MEDICAID, SELFPAY ==
[2023-02-15] VITALS (9 sets, daily range): BP systolic 107–138; BP diastolic 69–82; PULSE 77–116; RESP 16–26; TEMP 36.7–37.2; O2SAT 90–96; BMI 24.3
--- NOTE | 2023-02-15 15:22 | XRR_ITS ---
PROCEDURE INFORMATION: Exam: XR Chest Exam date and time: 02/15/2023 3:36 PM Age: 72 years old Clinical indication: Shortness of breath; Prior surgery; Surgery date: 6+ months; Patient HX: HX of bladder cancer; Additional info: SOB TECHNIQUE: Imaging protocol: Radiologic exam of the chest. Views: 1 view. COMPARISON: CR XR chest 2V* [id number] 09/09/2020 4:07 PM FINDINGS: Lungs: Scattered scarring and coarsening of the lung bases. No consolidation. Pleural spaces: No pleural effusion. No pneumothorax. Heart/Mediastinum: No cardiomegaly. Bones/joints: Visualized osseous structures are intact. XR/XR chest 1V portable [id number] IMPRESSION: No acute findings.
--- NOTE | 2023-02-15 15:24 | ED_ITS ---
Documented by User: PEMA Figueredo 02/16/23 07:06 HPI - SOB/Dyspnea General: Chief Complaint: Shortness of Breath/Dyspnea Stated Complaint: COPD Time Seen by Provider: 02/15/23 15:21 History of Present Illness: HPI Narrative: Patient is a 72-year-old male that comes to the ED via EMS with shortness of breath. EMS gave patient a dose of IV Solu-Medrol and DuoNeb breathing treatment while in route. Patient has a history of emphysema, bladder cancer and BPH. Patient is currently on 2 L of oxygen at home when he only uses it at night. Patient went on a recent road trip up to [facility] this past week and just got into town yesterday. Patient says that approximately 4 days ago he started developing nasal congestion and drainage, fever, chills, body aches, cough and shortness of breath. He says his cough is productive and is getting up of brown and green-colored sputum. Denies any current chest pain. He does r eport that when he gets in due to his coughing fits his chest hurts and gets achy while he is coughing. Denies any nausea, vomiting, abdominal pain, bladder or bowel symptoms. Denies any known sick contacts. Associated symptoms: Reports fever(s); Deny abdominal pain, chest pain, nausea, orthopnea, palpitations or vomiting Review of Systems Const: Reports: fever(s), chills and body aches; Denies: fatigue Eyes: Denies: change in vision or eye discomfort ENMT: Denies: throat pain, odynophagia, nasal discharge or nasal congestion Card: Denies: chest pain, palpitations, edema, swelling of feet/ankles, dyspnea on exertion or orthopnea Resp: Reports: dyspnea, productive cough, wheezing and change in phlegm color (Brownish-green sputum); Denies: non-productive cough GI: Denies: abdominal pain, nausea, vomiting, diarrhea, constipation or hematochezia : Denies: flank pain, difficulty urinating, dysuria or hematuria Musc: Denies: neck pain, back pain or extremity swelling Skin/Breast: Denies: rash or new lesions Neuro: Denies: headache(s), numbness in extremities or weakness in extremities PFS ED PFSH: Medical History BPH loc w urin obs/LUTS 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 COPD (chronic obstructive pulmonary disease) Gout Surgical History H/O circumcision H/O colonoscopy with polypectomy (08/19/20) 1997 Hx of hernia repair Status post surgical removal and fulguration of bladder neoplasm Family History Father , at age 84 COPD (chronic obstructive pulmonary disease) Mother , at age 85 MRSA (methicillin resistant staph aureus) culture positive CAD (coronary artery disease) Denies family history of Anesthesia complication Bleeding disorder Cancer Social History Smoking and tobacco status: former smoker Alcohol intake: never Substance/Drug Use: never Adopted: No Caregiver/support person: No Lives independently: Yes Marital status: Current occupational status: retired Physical Exam Narrative: EXAM NARRATIVE: Patient is a 72-year-old male that is tachypneic and having labored breathing. Const: COMMON NORMALS: patient oriented x3 and alert HENMT: COMMON NORMALS: normocephalic HEAD & SCALP: normocephalic MOUTH: Normal oral and palatal mucosa present THROAT: posterior oropharynx normal and uvula midline Neck/C-Spine: COMMON NORMALS: supple GENERAL: Yes normal visual inspection Resp: EFFORT & INSPECTION: Yes tachypneic and Yes labored AUSCULTATION: wheezes expiratory wheezes and throughout and diminished lung sounds on the right in the lower lung herring Cardio: COMMON NORMALS: regular rate, regular rhythm, S1 normal heart sound present, S2 normal heart sound present, No gallops present (Cardio), No clicks present (Cardio), No murmurs present (Cardio) and Peripheral pulses 2+ throughout RATE: regular rate RHYTHM: regular rhythm HEART SOUNDS: S1 normal heart sound present and S2 normal heart sound present PERIPHERAL PULSES: Peripheral pulses 2+ throughout GI: COMMON NORMALS: Normal to inspection, nondistended, normoactive bowel sounds present, Soft to palpation, non-tender and no masses PALPATION: Yes Soft to palpation : COMMON NORMALS: Yes no CVA tenderness BLADDER/KIDNEY EXAM: Yes no CVA tenderness Back/Pelvis: COMMON NORMALS: no CVA tenderness Extremity: COMMON NORMALS: normal to inspection Neuro: COMMON NORMALS: patient oriented x3 SENSORIUM/ORIENTATION: Yes alert GAIT: Yes Normal gait present Skin: GENERAL SKIN EXAM: dry skin Course Vital Signs: Vital signs: Vital Signs Temperature 97.7 F 02/16/23 04:00 Pulse Rate 69 02/16/23 04:00 Respiratory Rate 16 02/16/23 04:00 Blood Pressure 132/78 02/16/23 04:00 Pulse Oximetry 98 02/16/23 04:00 Oxygen Delivery Me thod Room Air 02/16/23 04:00 Oxygen Flow Rate 3 02/16/23 02:32 Fraction of Inspir ed Oxygen 40 02/15/23 16:17 MDM - SOB/Dyspnea Lab Data I reviewed the patient's lab results. 02/15/23 15:23 02/16/23 03:57 Labs/Radiology: Radiology Impressions Chest X-Ray 02/15/23 15:22 IMPRESSION: No acute findings. Chest CTA 02/15/23 16:13 IMPRESSION: 1. Right lower lobe segmental branch nonocclusive pulmonary embolus, series 6, image 327, negative for right heart strain given an RV to LV ratio of 0.73. 2. Multiple enlarged mediastinal and hilar lymph nodes measuring up to 19 mm in the right hilar region, nonspecific. 3. Ascending thoracic aorta dilated to 3.6 cm. 4. Coronary artery atherosclerotic calcifications. 5. Pericardial effusion measuring 9.5 mm in thickness. 6. Emphysematous changes. 7. Bibasilar suspected airspace infiltrates with pleuroparenchymal fibrosis. 8. Hepatic steatosis. COMMENTS: In the absence of a history or active diagnosis of lung cancer, it is recommended that this patient with emphysema be evaluated for enrollment in a low dose CT lung cancer screening program. ADDENDUM: 02/15/23 3443 THIS REPORT CONTAINS FINDINGS THAT MAY BE CRITICAL TO PATIENT CARE. The findings were verbally communicated via telephone conference with Dr. Brown at 6:18 PM CDT on 02/15/2023. The findings were acknowledged and understood. Laboratory Results WBC 8.8 10^3/uL (4.0-10.0) 02/15/23 15: RBC 4.81 10^6/uL (4.1-5.3) 02/15/23 15:23 Hgb 14.6 g/dL (11.7-16.6) 02/15/23 15:23 Hct 43.5 % (42.0-52.0) 02/15/23 15: MCV 90.4 fl (80-94) 02/15/23 15:23 MCH 30.4 pg (28.0-34.0) 02/15/23 15: MCHC 33.6 g/dL (30.0-36.0) 02/15/23 15: RDW 13.5 % (12.1-15.1) 02/15/23 15: Plt Count 266 10^3/cmm (130-400) 02/15/23 15: MPV 12.0 fL (7.4-10.4) H 02/15/23 15:23 Lymph % (Auto) Not Reportable 02/15/23 15: Taylor % (Auto) Not Reportable 02/15/23: Lymph # (Auto) Not Reportable 02/15/23: Taylor # (Auto) Not Reportable 02/15/23 15: Total Counted 100 (0-100) 02/15/23 15: Atypical Lymphs % 0.0 % (0-5) 02/15/23 15: Absolute Neutrophils 7.4 10^3/cmm (1.4-6.5) H 02/15/23 15: Segmented Neutrophils 68 % 02/15/23 15: Abs Segm Neuts (Man) 6.0 10/cmm (1.6-7.1) 02/15/23 15: Band Neutrophils 16.0 % 02/15/23 15: Abs Band Neuts (Man) 1.4 10^3/cmm (0.0-1.2) H 02/15/23 15: Absolute Lymphocytes 0.5 10^3/cmm (1.2-3.4) L 02/15/23 15: Lymphocytes (Manual) 6 % 02/15/23 15: Monocytes (Manual) 7.0 % 02/15/23 15: Absolute Monocytes 0.6 10^3/cmm (0.1-0.6) 02/15/23 15: Eosinophils (Manual) 0 % 02/15/23: Absolute Eosinophils 0.0 10^3/cmm (0.0-0.7) 02/15/23: Basophils (Manual) 0.0 % 02/15/23: Absolute Basophils 0.0 10^3/cmm (0.0-0.2) 02/15/23 15: Metamyelocytes 3.0 % 02/15/23: Myelocytes 0.0 % 02/15/23: Promyelocytes 0.0 % 02/15/23: Nucleated RBCs 0.0 /100WBC (0-1) 02/15/23 15: Platelet Estimate Normal (Normal) 02/15/23: D-Dimer 3.17 ug/mIFEU (0-0.59) H 02/15/23 15: Specimen Type Arterial 02/15/23 15:25 Sample Site Radial, left 02/15/23 15: ABG pH 7.46 (7.35-7.45) H 02/15/23 15:25 ABG pCO2 32.9 mmHg (35-45) L 02/15/23 15: ABG pO2 60.4 mmHg (80.0-100.0) L 02/15/23 15: ABG HCO3 23.3 mmol/L (22-26) 02/15/23 15: ABG O2 Saturation 93.5 02/15/23 15: ABG Base Excess 0.1 mmol/L (-2.0-2.0) 02/15/23 15: Nathan Test Pos 02/15/23 15: A-a O2 Gradient 16.2 mmHg (5-10) H 02/15/23 15:25 Hematocrit 43.1 % (42-52) 02/15/23 15:25 Hgb O2 Saturation 91.5 % (95-100) L 02/15/23 15:25 Carboxyhemoglobin 1.4 %THgb (0.4-20.1) 02/15/23 15:25 Methemoglobin 0.7 % (0.4-1.5) 02/15/23 15:25 Total Hemoglobin 14.1 g/dL (14-18) 02/15/23 15:25 Sodium 130.0 mmol/L (131-143) L 02/15/23 15:25 Potassium 4.0 mmol/L (3.5-5.0) 02/15/23 15:25 Glucose 124.0 mg/dL (70-115) H 02/15/23 15:25 Ionized Calcium 1.1 mmol/L (1.1-1.4) 02/15/23 15:25 O2 Delivery Device Nc 02/15/23 15:25 O2 Liters/Min 3.0 % 02/15/23 15:25 FiO2 32.0 % 02/15/23 15:25 Central Supply Assistant ID Monro 02/15/23 15:25 Sodium 133 mmol/L (136-145) L 02/15/23 15:23 Potassium 4.6 mmol/L (3.5-5.1) 02/15/23 15: Chloride 95 mmol/L (98-107) L 02/15/23 15: Carbon Dioxide 20 mmol/L (22-29) L 02/15/23 15:23 Anion Gap 22.6 (5-19) H 02/15/23 15:23 BUN 33 mg/dL (8-23) H 02/15/23 15:23 Creatinine 1.2 mg/dL (0.7-1.2) 02/15/23 15:23 GFR Calculation Not Reportable 02/15/23 15: Glucose 105 mg/dL (65-115) 02/15/23 15:23 Calculated Osmolality 284 mOsm/kg (285-295) L 02/15/23 15:23 Calcium 8.6 mg/dL (8.5-10.5) 02/15/23 15:23 Total Bilirubin 0.8 mg/dL (0.15-1.2) 02/15/23 15:23 AST 56 U/L (0-40) H 02/15/23 15:23 ALT 34 U/L (0-41) 02/15/23 15:23 Alkaline Phosphatase 93 U/L (40-130) 02/15/23 15:23 Troponin T Baseline 18 ng/L (0-15) H 02/15/23 15:23 Troponin T 120 Minute 17.97 ng/L (0-15) H 02/15/23 17:09 Delta Troponin T -0.03 ABS# (0-10) L 02/15/23 17:09 NT-Pro-B Natriuret Pep 654 pg/mL (0-125) H 02/15/23 15:23 Total Protein 6.1 g/dL (6.6-8.7) L 02/15/23 15:23 Albumin 3.6 g/dL (3.5-5.2) 02/15/23 15:23 Globulin 2.5 g/dL (1.3-4.6) 02/15/23 15:23 Coronavirus 229E (PCR) Not detected (NOT DETECT) 02/15/23 15:39 Human Metapneumovir PCR Not detected (NOT DETECT) 02/15/23 17:53 Influenza Type A Ag negative (Negative) 02/15/23 00:20 Influenza Type B Ag negative (Negative) 02/15/23 00:20 Entero/Rhino (PCR) Detected (NOT DETECT) A 02/15/23 17:53 SARS-CoV-2 (PCR) Not detected (NOT DETECT) 02/15/23 15:39 Discharge Plan Discharge Patient Disposition: Admitted As Inpatient Admit Provider: Beryl Cooper Clinical Impression: Pulmonary embolism, Community acquired pneumonia, Hypoxia Condition: Stable Coding Level of Care Code ED Technical Asst for Chg Fwd Documented by User: Tova Patel MD 02/15/23 22:51 HPI - SOB/Dyspnea General: Chief Complaint: Shortness of Breath/Dyspnea Stated Complaint: COPD Time Seen by Provider: 02/15/23 15:21 PFSH ED PFSH: Medical History BPH loc w urin obs/LUTS 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 COPD (chronic obstructive pulmonary disease) Gout Surgical History H/O circumcision H/O colonoscopy with polypectomy (08/19/20) 1997 Hx of hernia repair Status post surgical removal and fulguration of bladder neoplasm Family History Father , at age 84 COPD (chronic obstructive pulmonary disease) Mother , at age 85 MRSA (methicillin resistant staph aureus) culture positive CAD (coronary artery disease) Denies family history of Anesthesia complication Bleeding disorder Cancer Social History Smoking and tobacco status: former smoker Alcohol intake: never Substance/Drug Use: never Adopted: No Caregiver/support person: No Lives independently: Yes Marital status: Current occupational status: retired Course Vital Signs: Vital signs: Vital Signs Temperature 97.7 F 02/16/23 04:00 Pulse Rate 69 02/16/23 04:00 Respiratory Rate 16 02/16/23 04:00 Blood Pressure 132/78 02/16/23 04:00 Pulse Oximetry 98 02/16/23 04:00 Oxygen Delivery Me thod Room Air 02/16/23 04:00 Oxygen Flow Rate 3 02/16/23 02:32 Fraction of Inspir ed Oxygen 40 02/15/23 16:17 MDM - SOB/Dyspnea Medical Decision Making Medical decision making: Patient presents with worsening shortness of breath and using supplemental oxygen during the day. CT revealed pulmonary embolism, pericardial effusion and bibasilar infiltrates. He will be admitted for further evaluation and treatment. Case discussed with the hospitalist who accepted patient for admission. Lab Data 02/15/23 15:23 02/16/23 03:57 Labs/Radiology: Radiology Impressions Chest X-Ray 02/15/23 15:22 IMPRESSION: No acute findings. Chest CTA 02/15/23 16:13 IMPRESSION: 1. Right lower lobe segmental branch nonocclusive pulmonary embolus, series 6, image 327, negative for right heart strain given an RV to LV ratio of 0.73. 2. Multiple enlarged mediastinal and hilar lymph nodes measuring up to 19 mm in the right hilar region, nonspecific. 3. Ascending thoracic aorta dilated to 3.6 cm. 4. Coronary artery atherosclerotic calcifications. 5. Pericardial effusion measuring 9.5 mm in thickness. 6. Emphysematous changes. 7. Bibasilar suspected airspace infiltrates with pleuroparenchymal fibrosis. 8. Hepatic steatosis. COMMENTS: In the absence of a history or active diagnosis of lung cancer, it is recommended that this patient with emphysema be evaluated for enrollment in a low dose CT lung cancer screening program. ADDENDUM: 02/15/23 2769 THIS REPORT CONTAINS FINDINGS THAT MAY BE CRITICAL TO PATIENT CARE. The findings were verbally communicated via telephone conference with Dr. Brown at 6:18 PM CDT on 02/15/2023. The findings were acknowledged and understood. Laboratory Results WBC 8.8 10^3/uL (4.0-10.0) 02/15/23 15: RBC 4.81 10^6/uL (4.1-5.3) 02/15/23: Hgb 14.6 g/dL (11.7-16.6) 02/15/23: Hct 43.5 % (42.0-52.0) 02/15/23 15: MCV 90.4 fl (80-94) 02/15/23 15: MCH 30.4 pg (28.0-34.0) 02/15/23: MCHC 33.6 g/dL (30.0-36.0) 02/15/23: RDW 13.5 % (12.1-15.1) 02/15/23 15: Plt Count 266 10^3/cmm (130-400) 02/15/23 15: MPV 12.0 fL (7.4-10.4) H 02/15/23 15:23 Lymph % (Auto) Not Reportable 02/15/23 15:23 Taylor % (Auto) Not Reportable 02/15/23 15:23 Lymph # (Auto) Not Reportable 02/15/23 15:23 Taylor # (Auto) Not Reportable 02/15/23 15:23 Total Counted 100 (0-100) 02/15/23 15: Atypical Lymphs % 0.0 % (0-5) 02/15/23 15: Absolute Neutrophils 7.4 10^3/cmm (1.4-6.5) H 02/15/23 15:23 Segmented Neutrophils 68 % 02/15/23 15: Abs Segm Neuts (Man) 6.0 10/cmm (1.6-7.1) 02/15/23 15: Band Neutrophils 16.0 % 02/15/23 15: Abs Band Neuts (Man) 1.4 10^3/cmm (0.0-1.2) H 02/15/23 15: Absolute Lymphocytes 0.5 10^3/cmm (1.2-3.4) L 02/15/23 15: Lymphocytes (Manual) 6 % 02/15/23 15: Monocytes (Manual) 7.0 % 02/15/23: Absolute Monocytes 0.6 10^3/cmm (0.1-0.6) 02/15/23 15: Eosinophils (Manual) 0 % 02/15/23: Absolute Eosinophils 0.0 10^3/cmm (0.0-0.7) 02/15/23: Basophils (Manual) 0.0 % 02/15/23: Absolute Basophils 0.0 10^3/cmm (0.0-0.2) 02/15/23: Metamyelocytes 3.0 % 02/15/23: Myelocytes 0.0 % 02/15/23: Promyelocytes 0.0 % 02/15/23: Nucleated RBCs 0.0 /100WBC (0-1) 02/15/23: Platelet Estimate Normal (Normal) 02/15/23: D-Dimer 3.17 ug/mIFEU (0-0.59) H 02/15/23 15:23 Specimen Type Arterial 02/15/23 15:25 Sample Site Radial, left 02/15/23 15:25 ABG pH 7.46 (7.35-7.45) H 02/15/23 15:25 ABG pCO2 32.9 mmHg (35-45) L 02/15/23 15: ABG pO2 60.4 mmHg (80.0-100.0) L 02/15/23 15:25 ABG HCO3 23.3 mmol/L (22-26) 02/15/23 15:25 ABG O2 Saturation 93.5 02/15/23 15:25 ABG Base Excess 0.1 mmol/L (-2.0-2.0) 02/15/23 15:25 Nathan Test Pos 02/15/23 15:25 A-a O2 Gradient 16.2 mmHg (5-10) H 02/15/23 15:25 Hematocrit 43.1 % (42-52) 02/15/23 15:25 Hgb O2 Saturation 91.5 % (95-100) L 02/15/23 15:25 Carboxyhemoglobin 1.4 %THgb (0.4-20.1) 02/15/23 15:25 Methemoglobin 0.7 % (0.4-1.5) 02/15/23 15:25 Total Hemoglobin 14.1 g/dL (14-18) 02/15/23 15:25 Sodium 130.0 mmol/L (131-143) L 02/15/23 15:25 Potassium 4.0 mmol/L (3.5-5.0) 02/15/23 15:25 Glucose 124.0 mg/dL (70-115) H 02/15/23 15:25 Ionized Calcium 1.1 mmol/L (1.1-1.4) 02/15/23 15:25 O2 Delivery Device Nc 02/15/23 15:25 O2 Liters/Min 3.0 % 02/15/23 15:25 FiO2 32.0 % 02/15/23 15:25 Central Supply Assistant ID Monro 02/15/23 15:25 Sodium 133 mmol/L (136-145) L 02/15/23 15:23 Potassium 4.6 mmol/L (3.5-5.1) 02/15/23 15:23 Chloride 95 mmol/L (98-107) L 02/15/23 15:23 Carbon Dioxide 20 mmol/L (22-29) L 02/15/23 15:23 Anion Gap 22.6 (5-19) H 02/15/23 15:23 BUN 33 mg/dL (8-23) H 02/15/23 15:23 Creatinine 1.2 mg/dL (0.7-1.2) 02/15/23 15:23 GFR Calculation Not Reportable 02/15/23 15:23 Glucose 105 mg/dL (65-115) 02/15/23 15:23 Calculated Osmolality 284 mOsm/kg (285-295) L 02/15/23 15:23 Calcium 8.6 mg/dL (8.5-10.5) 02/15/23 15:23 Total Bilirubin 0.8 mg/dL (0.15-1.2) 02/15/23 15:23 AST 56 U/L (0-40) H 02/15/23 15:23 ALT 34 U/L (0-41) 02/15/23 15:23 Alkaline Phosphatase 93 U/L (40-130) 02/15/23 15:23 Troponin T Baseline 18 ng/L (0-15) H 02/15/23 15:23 Troponin T 120 Minute 17.97 ng/L (0-15) H 02/15/23 17:09 Delta Troponin T -0.03 ABS# (0-10) L 02/15/23 17:09 NT-Pro-B Natriuret Pep 654 pg/mL (0-125) H 02/15/23 15:23 Total Protein 6.1 g/dL (6.6-8.7) L 02/15/23 15:23 Albumin 3.6 g/dL (3.5-5.2) 02/15/23 15:23 Globulin 2.5 g/dL (1.3-4.6) 02/15/23 15:23 Coronavirus 229E (PCR) Not detected (NOT DETECT) 02/15/23 15:39 Human Metapneumovir PCR Not detected (NOT DETECT) 02/15/23 17:53 Influenza Type A Ag negative (Negative) 02/15/23 00:20 Influenza Type B Ag negative (Negative) 02/15/23 00:20 Entero/Rhino (PCR) Detected (NOT DETECT) A 02/15/23 17:53 SARS-CoV-2 (PCR) Not detected (NOT DETECT) 02/15/23 15:39 Discharge Plan Discharge Patient Disposition: Admitted As Inpatient Admit Provider: Beryl Cooper Clinical Impression: Pulmonary embolism, Community acquired pneumonia, Hypoxia Condition: Stable Coding Level of Care Code ED Technical Asst for Jean Taveras
[2023-02-15 15:38] LABS: ABG PCO2 32.9 mmHg (35-45); ABG PH Result 7.46 (7.35-7.45); Alveolar-Arterial Oxygen Gradi 16.2 mmHg (5-10); Arterial Blood Gas Hematocrit 43.1 % (42-52); Base Excess ABG 0.1 mmol/L (-2.0-2.0); Blood Gas Allen Test Pos; Blood Gas Operator Identificat MONRO; Blood Gas Sample Site Radial, left; Blood Gas Sample Type Arterial; Carboxyhemoglobin 1.4 %THgb (0.4-20.1); HCO3 ABG 23.3 mmol/L (22-26); HGB O2 Sat 91.5 % (95-100); Ionized Calcium Level - ABG 1.1 mmol/L (1.1-1.4); Methemoglobin 0.7 % (0.4-1.5); Oxygen Device NC; Oxygen Saturation ABG 93.5; PO2 ABG 60.4 mmHg (80.0-100.0); Total Hemoglobin 14.1 g/dL (14-18)
[2023-02-15] MEDS: ipratropium-albuterol 3 mL Neb INHALATION (15:44)
[2023-02-15 15:57] LABS: Hematocrit 43.5 % (42.0-52.0); Hemoglobin 14.6 g/dL (11.7-16.6); Mean Corpuscular HGB Conc 33.6 g/dL (30.0-36.0); Mean Corpuscular Hemoglobin 30.4 pg (28.0-34.0); Mean Corpuscular Volume 90.4 fl (80-94); Platelet Count 266 10^3/cmm (130-400); Red Blood Count 4.81 10^6/uL (4.1-5.3); Red Cell Distribution Width 13.5 % (12.1-15.1); White Blood Count 8.8 10^3/uL (4.0-10.0)
[2023-02-15 16:07] LABS: D Dimer 3.17 ug/mIFEU (0-0.59)
--- NOTE | 2023-02-15 16:13 | CTR_ITS ---
PROCEDURE INFORMATION: Exam: CTA Chest With Contrast Exam date and time: 02/15/2023 5:27 PM Age: 72 years old Clinical indication: Shortness of breath; Additional info: SOB, tachycardic, elevated d dimer TECHNIQUE: Imaging protocol: Computed tomographic angiography of the chest with contrast. Exam focused on the arteries. 3D rendering (Not supervised by radiologist): MIP and/or 3D reconstructed images were created by the technologist. Radiation optimization: All CT scans at this facility use at least one of these dose optimization techniques: automated exposure control; mA and/or kV adjustment per patient size (includes targeted exams where dose is matched to clinical indication); or iterative reconstruction. Contrast material: OMNI 350; Contrast volume: 100 ml; Contrast route: INTRAVENOUS (IV); REPORTING DATA: Count of CT and Cardiac NM exams in prior 12 months: This patient has received 0 known CTs and 0 known cardiac nuclear medicine studies in the 12 months prior to the current study. COMPARISON: CR XR chest 1V portable [id number] 02/15/2023 3:36 PM RADIATION DOSE METRICS: Total DLP (mGy-cm): 331 FINDINGS: Pulmonary arteries: Right lower lobe segmental branch nonocclusive pulmonary embolus, series 6, image 327, negative for right heart strain given an RV to LV ratio of 0.73. Aorta: Ascending thoracic aorta dilated to 3.6 cm. Lungs: Emphysematous changes. Bibasilar suspected airspace infiltrates with pleuroparenchymal fibrosis. Pleural spaces: Unremarkable. No pneumothorax. No pleural effusion. Heart: Pericardial effusion measuring 9.5 mm in thickness. Coronary arteries: Coronary artery atherosclerotic calcifications. Lymph nodes: Multiple enlarged mediastinal and hilar lymph nodes measuring up to 19 mm in the right hilar region, nonspecific. Bones/joints: Unremarkable. No acute fracture. Soft tissues: Hepatic steatosis. CT/CT angio chest PE protcl [id number] IMPRESSION: 1. Right lower lobe segmental branch nonocclusive pulmonary embolus, series 6, image 327, negative for right heart strain given an RV to LV ratio of 0.73. 2. Multiple enlarged mediastinal and hilar lymph nodes measuring up to 19 mm in the right hilar region, nonspecific. 3. Ascending thoracic aorta dilated to 3.6 cm. 4. Coronary artery atherosclerotic calcifications. 5. Pericardial effusion measuring 9.5 mm in thickness. 6. Emphysematous changes. 7. Bibasilar suspected airspace infiltrates with pleuroparenchymal fibrosis. 8. Hepatic steatosis. COMMENTS: In the absence of a history or active diagnosis of lung cancer, it is recommended that this patient with emphysema be evaluated for enrollment in a low dose CT lung cancer screening program.
[2023-02-15 16:32] LABS: Absolute Neutrophil 7.4 10^3/cmm (1.4-6.5); Band Neutrophils Absolute 1.4 10^3/cmm (0.0-1.2); Eosinophils 0 %; Lymphocytes 6 %; Lymphocytes Absolute 0.5 10^3/cmm (1.2-3.4); Monocytes Absolute 0.6 10^3/cmm (0.1-0.6); Platelet Estimate Normal (Normal); Segmented Neutrophils 68 %; Total Cells Counted 100 (0-100)
[2023-02-15 16:59] LABS: Alanine Aminotransferase 34 U/L (0-41); Albumin Level 3.6 g/dL (3.5-5.2); Alkaline Phosphatase 93 U/L (40-130); Aspartate Amino Transferase 56 U/L (0-40); Blood Urea Nitrogen 33 mg/dL (8-23); Calcium 8.6 mg/dL (8.5-10.5); Carbon Dioxide 20 mmol/L (22-29); Chloride 95 mmol/L (98-107); Globulin 2.5 g/dL (1.3-4.6); Glucose 105 mg/dL (65-115); NT Pro B Type Natriuretic Pept 654 pg/mL (0-125); Osmolality Calculated 284 mOsm/kg (285-295); Sodium 133 mmol/L (136-145); Total Bilirubin 0.8 mg/dL (0.15-1.2); Total Protein 6.1 g/dL (6.6-8.7); Troponin(5th) Baseline 18 ng/L (0-15)
[2023-02-15 17:05] LABS: Anion Gap 22.6 (5-19); Potassium 4.6 mmol/L (3.5-5.1)
--- NOTE | 2023-02-15 17:22 | ECG_ITS ---
[facility] Test Date: 2023-02-15 Pat Name: Levar Fitzgerald Department: Room: Gender: Male Supervisor Cartography: : 1950 Requested By: Landon Castro Order Number: [id number] Alvaro MD: Modesto Aguilar M.D. Measurements Intervals [place] Rate: 105 P: 72 MD: 112 QRS: 73 QRSD: 85 T: 75 QT: 353 QTc: 468 Interpretive Statements SINUS TACHYCARDIA WITH SHORT MD INTERVAL ABNORMAL RHYTHM ECG Compared to ECG 09/09/2020 16:40:46 Short MD interval now present Sinus rhythm no longer present Electronically Signed On 02-15-2023 16:45:05 CDT by Modesto Aguilar M.D. [email or web address]
[2023-02-15] MEDS: iohexol 350 mg/mL 500 mL Btl (per mL) IV (17:33)
[2023-02-15 17:40] LABS: Adenovirus Not Detected (NOT DETECT); Chlamydia Pneumoniae Not Detected (NOT DETECT); Coronavirus 229E,HKU1,NL63,OC4 Not Detected (NOT DETECT); Human Metapneumovirus Not Detected (NOT DETECT); Human Rhinovirus/Enterovirus Detected (NOT DETECT); Influenza A Not Detected (NOT DETECT); Influenza A H1 Not Detected (NOT DETECT); Influenza A H1-2009 Not Detected (NOT DETECT); Influenza A H3 Not Detected (NOT DETECT); Influenza B Not Detected (NOT DETECT); Mycoplasma Pneumoniae Not Detected (NOT DETECT); Parainfluenza Virus Type 1 Not Detected (NOT DETECT); Parainfluenza Virus Type 2 Not Detected (NOT DETECT); Parainfluenza Virus Type 3 Not Detected (NOT DETECT); Parainfluenza Virus Type 4 Not Detected (NOT DETECT); Respiratory Syncytial Virus A Not Detected (NOT DETECT); Respiratory Syncytial Virus B Not Detected (NOT DETECT); SARS-COV-2 Not Detected (NOT DETECT)
[2023-02-15 18:12] LABS: Troponin 5 2HR 17.97 ng/L (0-15)
[2023-02-15 18:13] LABS: Troponin 5 2HR Delta -0.03 ABS# (0-10)
[2023-02-15 20:19] LABS: Human Metapneumovirus Not Detected (NOT DETECT); Human Rhinovirus/Enterovirus Detected (NOT DETECT); Results from Genmark
[2023-02-15] MEDS: azithromycin 500 MG in sodium chloride 0.9% 250 ML 250 MG IV (20:28)
[2023-02-15] MEDS: cefTRIAXone 1,000 MG in water for injection-sterile 2.1 ML 0.01 MG IM (20:29)
[2023-02-15 21:26] LABS: Troponin 5 6HR 16.48 ng/L (0-15)
[2023-02-15 21:31] LABS: Troponin 5 6HR Delta -1.52 ng/L (0-12)
--- NOTE | 2023-02-15 22:12 | ECG_ITS ---
[facility] Test Date: 2023-02-15 Pat Name: Levar Fitzgerald Department: Room: 255 Gender: Male Miller [place] Wet Process: : 1950 Requested By: Landon Castro Order Number: [id number] John MD: Giles Marks M.D. Measurements Intervals [place] Rate: 79 P: 76 W[place]: 152 QRS: 68 QRSD: 90 T: 71 QT: 396 QTc: 454 Interpretive Statements SINUS RHYTHM Compared to ECG 02/15/2023 15:28:22 Sinus tachycardia no longer present Short [place] interval no longer present Electronically Signed On 02-16-2023 13:56:19 CDT by Giles Marks M.D. [id number]
--- NOTE | 2023-02-15 22:26 | P.HP_ITS ---
Providers/Chief Complaint Admitting Physician: Beryl Cooper MD Primary Care Provider: Mike Gold Chief Complaint: COPD History of Present Illness Levar Fitzgerald is a 72 year old male with h/o COPD emphysema on home oxygen therapy at night 2LNC, BPH, presented to ER with c/o SOB at rest and cough with yellow/green sputum. He reports h/o sick contact. he was travelling last week and then he started to have difficulty breathing while returning home. Unable to speak in full sentences. Denies any chest pain, fever or urinary complaints. In ER found to have elevated D-Dimer and CT chest positive for pulmonary embolism and b/l lung infitrates Review of Systems Const: Reports: fever(s), chills and body aches; Denies: fatigue Eyes: Denies: change in vision or eye discomfort ENMT: Denies: throat pain, odynophagia, nasal discharge or nasal congestion Card: Denies: chest pain, palpitations, edema, swelling of feet/ankles, dyspnea on exertion or orthopnea Resp: Reports: dyspnea, productive cough, wheezing and change in phlegm color (Brownish-green sputum); Denies: non-productive cough GI: Denies: abdominal pain, nausea, vomiting, diarrhea, constipation or hematochezia : Denies: flank pain, difficulty urinating, dysuria or hematuria Musc: Denies: neck pain, back pain or extremity swelling Skin/Breast: Denies: rash or new lesions Neuro: Denies: headache(s), numbness in extremities or weakness in extremities Medications/Allergies Home Medications Medication Instructions Recorded Confirmed Last Taken Type albuterol sulfate 0.63 mg/3 mL 0.63 mg inhalation QID PRN 06/04/20 09/16/22 08/19/20 History solution for nebulization Shortness Of Breath fluticasone fur. 100 mcg-umeclid 1 inh inhalation DAILY 06/04/20 09/16/22 08/19/20 History 62.5 mcg-vilant 25 mcg inhalat.powder (Trelegy Ellipta) ipratropium 20 mcg-albuterol 100 1 puff inhalation Q6H 01/15/22 09/16/22 Unknown History mcg/actuation mist for inhalation (Combivent Respimat) fluoxetine 20 mg capsule (Prozac) 20 mg PO QAM depression #30 caps 01/19/22 09/16/22 Unknown Rx nitrofurantoin macrocrystal 100 mg 100 mg PO BID 7 days #14 caps 02/10/22 09/16/22 Unknown Rx capsule tamsulosin 0.4 mg capsule 0.4 mg PO BID #180 caps 03/02/22 09/16/22 Unknown Rx finasteride 5 mg tablet 5 mg PO QDAY #90 tabs 11/17/22 Unknown Rx Allergies Allergy/AdvReac Type Severity Reaction Status Date / Time levofloxacin [From Levaquin] Allergy ALGY-Anaphy Verified 02/15/23 15:18 laxis sulfamethoxazole Allergy unk Verified 02/15/23 15:18 [From Sulfamethoxazole-Trimethoprim] trimethoprim Allergy unk Verified 02/15/23 15:18 [From Sulfamethoxazole-Trimethoprim] PFSH Acute PFSH: Medical History BPH loc w urin obs/LUTS 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 COPD (chronic obstructive pulmonary disease) Gout Surgical History H/O circumcision H/O colonoscopy with polypectomy (08/19/20) 1997 Hx of hernia repair Status post surgical removal and fulguration of bladder neoplasm Family History Father , at age 84 COPD (chronic obstructive pulmonary disease) Mother , at age 85 MRSA (methicillin resistant staph aureus) culture positive CAD (coronary artery disease) Denies family history of Anesthesia complication Bleeding disorder Cancer Social History Smoking and tobacco status: former smoker Alcohol intake: never Substance/Drug Use: never Adopted: No Caregiver/support person: No Lives independently: Yes Marital status: Current occupational status: retired Vitals/I&O/Wt Last Vital Signs Temp 98.2 F 02/15/23 21:30 Pulse 77 02/15/23 21:30 Resp 16 02/15/23 21:30 BP 130/74 02/15/23 21:30 Pulse Ox 96 02/15/23 21:30 O2 Del Method Nasal Cannula 02/15/23 21:30 O2 Flow Rate 3 02/15/23 21:30 FiO2 40 02/15/23 16:17 02/15/23 02/15/23 02/15/23 06:59 14:59 22:59 Intake Total 250 / 250 Balance 250 / 250 Weight last 48 hrs Weight 74.843 kg Physical Exam 2 Narrative: AAox3, in moderate respiratory distress, unable to speak in full sentences. nasal canula in place Chest B/L wheezing and coarse rhonchi heard all over the lung herring CVS S1S2 normal, no murmurs. Abd normal Ext no edema Data 02/15/23 15:23 02/15/23 15:23 Micro: Microbiology 02/15/23 15:59 Blood Culture - Preliminary Blood SPECIMEN COLLECTED 02/15/23 15:59 Blood Culture - Preliminary Blood SPECIMEN COLLECTED CTA Chest: Radiologist's impression: Right lower lobe segmental branch nonocclusive pulmonary embolus, series 6, image 327, negative for right heart strain given an RV to LV ratio of 0.73. 2. ? Multiple enlarged mediastinal and hilar lymph nodes measuring up to 19 mm in the right hilar region, nonspecific. 3. ? Ascending thoracic aorta dilated to 3.6 cm. 4. ? Coronary artery atherosclerotic calcifications. 5. ? Pericardial effusion measuring 9.5 mm in thickness. 6. ? Emphysematous changes. 7. ? Bibasilar suspected airspace infiltrates with pleuroparenchymal fibrosis. 8. ? Hepatic steatosis. CXR: Radiologist's impression: Lungs: Scattered scarring and coarsening of the lung bases. No consolidation. Pleural spaces: No pleural effusion. No pneumothorax. Heart/Mediastinum: No cardiomegaly. Bones/joints: Visualized osseous structures are intact. EKG 1: My Interpretation: normal sinus rhythm ABG Interpretation 1: 02/15/23 15:25 ABG pH 7.46 H ABG pCO2 32.9 L ABG pO2 60.4 L ABG HCO3 23.3 ABG O2 Saturation 93.5 ABG Base Excess 0.1 A&P Assessment and plan (1) Pulmonary embolism: likely secondary to prolonged immobilization due to travel and DVT/ (2) Community acquired pneumonia: likely secondary to viral URI Plan admit to medical floor will give IV ceftriaxone 1 g q12h IV azithromycin 500mg daily Po dexamethasone 16mg bid duonebs q6h supplemental oxygen to keep saturation >90% will start on Po eliquis 5mg bid for PE. recheck labs in am resume home medications. Attestations Medical Necessity Statement*: Ct chest c/w community acquired pneumonia, will need 3 days of antibiotics and treatment for PE Time Spent in Patient Care: 35 Coding Level of Care Code Critical Care >/= 30 minutes Diagnoses Pulmonary embolism I26.99 Community acquired pneumonia J18.9 Time Spent (min) 35
[2023-02-16] VITALS (12 sets, daily range): BP systolic 132–151; BP diastolic 55–84; PULSE 69–80; RESP 16–22; TEMP 36.4–37; O2SAT 92–98
[2023-02-16] MEDS: pantoprazole 40 mg SDV IVP ×2 (00:13→09:54)
[2023-02-16] MEDS: sodium chloride 0.9% 1,000 ML 75 ML IV (00:13)
[2023-02-16 00:49] LABS: Influenza A by IFA negative (Negative); Influenza B by IFA negative (Negative)
[2023-02-16] MEDS: ipratropium-albuterol 3 mL Neb INHALATION ×4 (02:30→20:35)
[2023-02-16 05:14] LABS: Lactic Sepsis W/Reflex 1.6 mmol/L (0.5-2.2)
[2023-02-16 05:15] LABS: Alanine Aminotransferase 34 U/L (0-41); Albumin Level 2.6 g/dL (3.5-5.2); Alkaline Phosphatase 122 U/L (40-130); Anion Gap 16.5 (5-19); Aspartate Amino Transferase 52 U/L (0-40); Blood Urea Nitrogen 29 mg/dL (8-23); Calcium 8.3 mg/dL (8.5-10.5); Carbon Dioxide 22 mmol/L (22-29); Chloride 99 mmol/L (98-107); Globulin 3.1 g/dL (1.3-4.6); Glucose 147 mg/dL (65-115); Osmolality Calculated 285 mOsm/kg (285-295); Potassium 4.5 mmol/L (3.5-5.1); Sodium 133 mmol/L (136-145); Total Bilirubin 0.5 mg/dL (0.15-1.2); Total Protein 5.7 g/dL (6.6-8.7)
[2023-02-16] MEDS: fluoxetine 20 mg Capsule PO (06:30)
[2023-02-16] MEDS: budesonide 0.5 mg/2 mL Neb INHALATION ×2 (08:01→20:35)
[2023-02-16] MEDS: tamsulosin 0.4 mg Capsule PO ×2 (08:15→17:17)
[2023-02-16] MEDS: finasteride 5 mg Tablet PO (08:15)
[2023-02-16] MEDS: cefTRIAXone 1,000 MG in sodium chloride 0.9% (plus) 50 ML 100 MG IV (08:17)
[2023-02-16] MEDS: apixaban 5 mg Tablet 10 MG PO ×2 (08:38→20:06)
[2023-02-16] MEDS: predniSONE 20 mg Tablet 40 MG PO (08:39)
--- NOTE | 2023-02-16 10:05 | P.PN_ITS ---
Subjective Subjective: This morning patient is on 3 L, at home uses 2 L, no active chest pain or shortness of breath Fluids discontinued Added Mucinex Change Decadron to prednisone Vitals/I&O/Wt Last Vital Signs Temp 97.7 F 02/16/23 07:33 Pulse 78 02/16/23 08:11 Resp 18 02/16/23 08:01 BP 151/82 02/16/23 07:33 Pulse Ox 96 02/16/23 08:01 O2 Del Method Nasal Cannula 02/16/23 08:01 O2 Flow Rate 3 02/16/23 08:01 FiO2 40 02/15/23 16:17 02/15/23 02/16/23 02/16/23 22:59 06:59 14:59 Intake Total 250 / 250 Balance 250 / 250 Weight last 48 hrs Weight 74.843 kg Physical Exam Narrative: Patient is awake and alert Currently on 3 L Mild wheezing noted Abdomen soft No signs of edema of legs Abdomen soft S1, S2 Pleasant and cooperative Nonfocal neuro exam Data 02/15/23 15:23 02/16/23 03:57 Micro: Microbiology 02/15/23 15:59 Blood Culture - Preliminary Blood SPECIMEN COLLECTED 02/15/23 15:59 Blood Culture - Preliminary Blood SPECIMEN COLLECTED A&P Assessment and plan (1) Cancer of trigone of urinary bladder: (2) 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
--- NOTE | 2023-02-16 10:08 | USCV_ITS ---
Levar Fitzgerald Age: 72 Gender: M : 1950 Exam Date: 02/16/2023 11:34 Ordering Phys: aJnell Shetty MD Technologist: CT Exam Location: [facility] [place] Indication: pe, pericardial eff, emphysema BP: 130 / 74 HR: 75 Rhythm: Sinus Technical Quality: Adequate MEASUREMENTS (Male / Female) Normal Values 2D ECHO LV Diastolic Diameter PLAX 4.0 cm 4.2 - 5.9 / 3.9 - 5.3 cm LV Systolic Diameter PLAX 3.0 cm IVS Diastolic Thickness 0.9 cm 0.6 - 1.0 / 0.6 - 0.9 cm IVS Systolic Thickness 1.5 cm LVPW Diastolic Thickness 1.3 cm 0.6 - 1.0 / 0.6 - 0.9 cm LVPW Systolic Thickness 1.4 cm LVOT Diameter 2.3 cm LV Ejection Fraction 2D Teich 40.6 % LV Ejection Fraction MOD 2C 42.8 % LV Ejection Fraction 2C AL 42.5 % LA Diameter 3.2 cm Aorta at Sinotubular Diameter 3.1 cm IVC Diameter 1.9 cm M-MODE Aortic Annulus Diameter 3.6 cm LA Ao Ratio MM 1.0 MV E Point Septal Separation 1.2 cm DOPPLER AV Peak Velocity 139.0 cm/s LVOT Peak Velocity 112.0 cm/s AV Area Cont Eq vti 3.7 cm squared AV Area Cont Eq pk 3.2 cm squared MV Peak Velocity 103.0 cm/s MV Area PHT 2.9 cm squared Mitral E to A Ratio 1.0 MV E' Velocity 46.0 cm/s Mitral E to MV E' Ratio 8.4 Mitral E to LV E' Lateral Ratio 8.6 Mitral E to LV E' Septal Ratio 8.3 TR Peak Velocity 67.0 cm/s TR Peak Gradient 1.8 mmHg TV Peak E Velocity 77.0 cm/s Right Atrial Pressure 3.0 mmHg Pulmonary Artery Systolic Pressu 4.8 mmHg FINDINGS Left Ventricle Normal left ventricular size, systolic function and wall thickness, with no regional wall motion abnormalities. Left ventricular ejection fraction is estimated at 65 %. Right Ventricle Normal right ventricular size and systolic function. RVSP could not be calculated due to incomplete tricuspid regurgitation velocity profile. Right Atrium Normal right atrial size. Left Atrium Normal left atrial size. Mitral Valve Mildly thickened mitral valve. No mitral valve stenosis. No mitral valve regurgitation. Aortic Valve No aortic valve stenosis. No aortic valve regurgitation. Tricuspid Valve Structurally normal tricuspid valve. Trace tricuspid valve regurgitation. Pulmonic Valve Pulmonic valve not well visualized. Pericardium No pericardial effusion. Aorta Normal size aortic root and proximal ascending aorta. IVC Dilated IVC with normal respiratory variation. CONCLUSIONS 1. Normal left ventricular size, systolic function and wall thickness, with no regional wall motion abnormalities. Left ventricular ejection fraction is estimated at 65 %. 2. No significant valvular abnormality. 3. No prior similar studies to compare. Miladys Lomax MD (Electronically Signed) Final Date: 16 February 2023 17:12 S
[2023-02-16] MEDS: guaiFENesin 600 mg Tablet PO ×2 (10:50→17:17)
[2023-02-16] MEDS: nystatin powder 15 gm Btl 1 APPLIC TOPICAL (17:17)
[2023-02-17] VITALS (10 sets, daily range): BP systolic 139–143; BP diastolic 73–79; PULSE 70–92; RESP 18–26; TEMP 36.3–36.5; O2SAT 83–96
[2023-02-17] MEDS: ipratropium-albuterol 3 mL Neb INHALATION ×4 (02:25→14:44)
[2023-02-17 03:41] LABS: Basophils % 0.2 %; Hematocrit 36.1 % (42.0-52.0); Hemoglobin 12.1 g/dL (11.7-16.6); Lymphocytes # 0.9 10^3/uL (0.8-4.8); Lymphocytes % 7.2 %; Mean Corpuscular HGB Conc 33.5 g/dL (30.0-36.0); Mean Corpuscular Hemoglobin 29.9 pg (28.0-34.0); Mean Corpuscular Volume 89.1 fl (80-94); Mean Platelet Volume 10.8 fL (7.4-10.4); Monocytes # 0.8 10^3/uL (0.2-0.9); Monocytes % 5.7 %; Neutrophils # 11.01 10^3/uL (1.8-7.7); Neutrophils % 84.3 %; Nucleated Red Blood Cells % 0 %; Platelet Count 311 10^3/cmm (130-400); Red Blood Count 4.05 10^6/uL (4.1-5.3); Red Cell Distribution Width 13.7 % (12.1-15.1); White Blood Count 13.1 10^3/uL (4.0-10.0)
[2023-02-17 04:11] LABS: Anion Gap 12.1 (5-19); Blood Urea Nitrogen 27 mg/dL (8-23); Calcium 8.4 mg/dL (8.5-10.5); Carbon Dioxide 25 mmol/L (22-29); Chloride 103 mmol/L (98-107); Glucose 128 mg/dL (65-115); Osmolality Calculated 289 mOsm/kg (285-295); Potassium 4.1 mmol/L (3.5-5.1); Sodium 136 mmol/L (136-145)
[2023-02-17] MEDS: fluoxetine 20 mg Capsule PO (05:13)
[2023-02-17] MEDS: budesonide 0.5 mg/2 mL Neb INHALATION (07:49)
[2023-02-17] MEDS: finasteride 5 mg Tablet PO (09:26)
[2023-02-17] MEDS: cefTRIAXone 1,000 MG in sodium chloride 0.9% (plus) 50 ML 100 MG IV (09:26)
[2023-02-17] MEDS: predniSONE 20 mg Tablet 40 MG PO (09:26)
[2023-02-17] MEDS: azithromycin 250 mg Tablet 500 MG PO (09:27)
[2023-02-17] MEDS: guaiFENesin 600 mg Tablet PO (09:27)
[2023-02-17] MEDS: tamsulosin 0.4 mg Capsule PO (09:27)
[2023-02-17] MEDS: apixaban 5 mg Tablet 10 MG PO (09:29)
[2023-02-17] MEDS: nystatin powder 15 gm Btl 1 APPLIC TOPICAL (09:34)
--- NOTE | 2023-02-17 09:52 | P.DS_ITS ---
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: Status: Acute (3) BPH loc w urin obs/LUTS: Status: Acute (4) Pulmonary embolism: Status: Acute (5) Community acquired pneumonia: Status: Acute (6) Hypoxia: Status: Acute (7) Pericardial effusion: Status: Acute Reason for Visit Reason for Visit: COPD Hospital Course Hospital Course 72-year-old male who carries history of oxygen pendant COPD uses 2 L at baseline, present to the hospital for shortness of breath, recently had sick contacts and prolonged hours of traveling, he was diagnosed with subsegmental PE without right heart strain no signs of wall motion abnormality or significant hemodynamic compromise, echo did not show any significant pericardial effusion or wall motion abnormality, patient did well with use of Eliquis, he is saturating well on 2 L of oxygen, he will go home on loading dose of Eliquis 10 mg twice daily for 7 days then he will resume 5 mg twice a day for at least 6 months Venous Doppler study is pending Patient is not experiencing chest pain or shortness of breath at the time of discharge he is hemodynamically stable He also has thoracic aortic aneurysm 3.6 cm mediastinal lymphadenopathy for which he will require doxycycline for next 5 days, He will need to see cardiothoracic surgeon for thoracic aortic aneurysm at tertiary center for which he can get referral through his PCP Physical Exam Narrative: Currently on 2 L S1, S2 Abdomen soft Euvolemic GCS 15 Discharge Data Studies Completed and Pending Completed Studies During Hospitalization Category Date Time Status CTA chest [CT angio chest PE protcl [id number]] Stat Cat Scan 02/15/23 16:13 Completed XR chest 1V portable [id number] Stat Exams 02/15/23 15:22 Completed CV. echo complete* [id number] Routine Ultrasound 02/16/23 10:08 Completed Pending at discharge Category Date Time Status Blood Culture Stat Lab 02/15/23 15:59 Results Sputum Culture and Gram Stain Stat Lab 02/15/23 15:57 Results Radiology Impressions Chest X-Ray 02/15/23 15:22 IMPRESSION: No acute findings. Chest CTA 02/15/23 16:13 IMPRESSION: 1. Right lower lobe segmental branch nonocclusive pulmonary embolus, series 6, image 327, negative for right heart strain given an RV to LV ratio of 0.73. 2. Multiple enlarged mediastinal and hilar lymph nodes measuring up to 19 mm in the right hilar region, nonspecific. 3. Ascending thoracic aorta dilated to 3.6 cm. 4. Coronary artery atherosclerotic calcifications. 5. Pericardial effusion measuring 9.5 mm in thickness. 6. Emphysematous changes. 7. Bibasilar suspected airspace infiltrates with pleuroparenchymal fibrosis. 8. Hepatic steatosis. COMMENTS: In the absence of a history or active diagnosis of lung cancer, it is recommended that this patient with emphysema be evaluated for enrollment in a low dose CT lung cancer screening program. ADDENDUM: 02/15/23 7865 THIS REPORT CONTAINS FINDINGS THAT MAY BE CRITICAL TO PATIENT CARE. The findings were verbally communicated via telephone conference with Dr. Brown at 6:18 PM CDT on 02/15/2023. The findings were acknowledged and understood. Laboratory Results WBC 13.1 10^3/uL (4.0-10.0) H 02/17/23 03:04 RBC 4.05 10^6/uL (4.1-5.3) L 02/17/23 03:04 Hgb 12.1 g/dL (11.7-16.6) 02/17/23 03:04 Hct 36.1 % (42.0-52.0) L 02/17/23 03:04 MCV 89.1 fl (80-94) 02/17/23 03:04 MCH 29.9 pg (28.0-34.0) 02/17/23 03:04 MCHC 33.5 g/dL (30.0-36.0) 02/17/23 03:04 RDW 13.7 % (12.1-15.1) 02/17/23 03:04 Plt Count 311 10^3/cmm (130-400) 02/17/23 03:04 MPV 10.8 fL (7.4-10.4) H 02/17/23 03:04 Neut % (Auto) 84.3 % 02/17/23 03:04 Lymph % (Auto) 7.2 % 02/17/23 03:04 [place] % (Auto) 5.7 % 02/17/23 03:04 Eos % (Auto) 0.0 % 02/17/23 03:04 Baso % (Auto) 0.2 % 02/17/23 03:04 Neut # (Auto) 11.01 10^3/uL (1.8-7.7) H 02/17/23 03:04 Lymph # (Auto) 0.9 10^3/uL (0.8-4.8) 02/17/23 03:04 [place] # (Auto) 0.8 10^3/uL (0.2-0.9) 02/17/23 03:04 Eos # (Auto) 0.0 10^3/uL (0.0-0.8) 02/17/23 03:04 Baso # (Auto) 0.0 10^3/uL (0.0-0.1) 02/17/23 03:04 Nucleated RBC % (auto) 0 % 02/17/23 03:04 Total Counted 100 (0-100) 02/15/23 15: Atypical Lymphs % 0.0 % (0-5) 02/15/23 15: Absolute Neutrophils 7.4 10^3/cmm (1.4-6.5) H 02/15/23 15: Segmented Neutrophils 68 % 02/15/23: Abs Segm Neuts (Man) 6.0 10/cmm (1.6-7.1) 02/15/23: Band Neutrophils 16.0 % 02/15/23 15: Abs Band Neuts (Man) 1.4 10^3/cmm (0.0-1.2) H 02/15/23 15:23 Absolute Lymphocytes 0.5 10^3/cmm (1.2-3.4) L 02/15/23 15:23 Lymphocytes (Manual) 6 % 02/15/23 15: Monocytes (Manual) 7.0 % 02/15/23: Absolute Monocytes 0.6 10^3/cmm (0.1-0.6) 02/15/23 15: Eosinophils (Manual) 0 % 02/15/23: Absolute Eosinophils 0.0 10^3/cmm (0.0-0.7) 02/15/23 15: Basophils (Manual) 0.0 % 02/15/23: Absolute Basophils 0.0 10^3/cmm (0.0-0.2) 02/15/23 15: Metamyelocytes 3.0 % 02/15/23 15: Myelocytes 0.0 % 02/15/23: Promyelocytes 0.0 % 02/15/23: Nucleated RBCs 0.0 /100WBC (0-1) 02/15/23 15: Nucleated RBCs # 0.0 /100WBC 02/17/23 03:04 Platelet Estimate Normal (Normal) 02/15/23: D-Dimer 3.17 ug/mIFEU (0-0.59) H 02/15/23 15: Specimen Type Arterial 02/15/23 15:25 Sample Site Radial, left 02/15/23 15: ABG pH 7.46 (7.35-7.45) H 02/15/23 15:25 ABG pCO2 32.9 mmHg (35-45) L 02/15/23 15: ABG pO2 60.4 mmHg (80.0-100.0) L 02/15/23 15: ABG HCO3 23.3 mmol/L (22-26) 02/15/23 15: ABG O2 Saturation 93.5 02/15/23 15: ABG Base Excess 0.1 mmol/L (-2.0-2.0) 02/15/23 15: Nathan Test Pos 02/15/23 15: A-a O2 Gradient 16.2 mmHg (5-10) H 02/15/23 15:25 Hematocrit 43.1 % (42-52) 02/15/23 15:25 Hgb O2 Saturation 91.5 % (95-100) L 02/15/23 15:25 Carboxyhemoglobin 1.4 %THgb (0.4-20.1) 02/15/23 15:25 Methemoglobin 0.7 % (0.4-1.5) 02/15/23 15:25 Total Hemoglobin 14.1 g/dL (14-18) 02/15/23 15:25 Sodium 130.0 mmol/L (131-143) L 02/15/23 15:25 Potassium 4.0 mmol/L (3.5-5.0) 02/15/23 15:25 Glucose 124.0 mg/dL (70-115) H 02/15/23 15:25 Ionized Calcium 1.1 mmol/L (1.1-1.4) 02/15/23 15:25 O2 Delivery Device Nc 02/15/23 15:25 O2 Liters/Min 3.0 % 02/15/23 15:25 FiO2 32.0 % 02/15/23 15:25 Care Manager ID [place] 02/15/23 15:25 Sodium 136 mmol/L (136-145) 02/17/23 03:04 Potassium 4.1 mmol/L (3.5-5.1) 02/17/23 03:04 Chloride 103 mmol/L (98-107) 02/17/23 03:04 Carbon Dioxide 25 mmol/L (22-29) 02/17/23 03:04 Anion Gap 12.1 (5-19) 02/17/23 03:04 BUN 27 mg/dL (8-23) H 02/17/23 03:04 Creatinine 0.9 mg/dL (0.7-1.2) 02/17/23 03:04 GFR Calculation Not Reportable 02/17/23 03:04 Glucose 128 mg/dL (65-115) H 02/17/23 03:04 Calculated Osmolality 289 mOsm/kg (285-295) 02/17/23 03:04 Lactic Acid 1.6 mmol/L (0.5-2.2) 02/16/23 03:57 Calcium 8.4 mg/dL (8.5-10.5) L 02/17/23 03:04 Total Bilirubin 0.5 mg/dL (0.15-1.2) 02/16/23 03:57 AST 52 U/L (0-40) H 02/16/23 03:57 ALT 34 U/L (0-41) 02/16/23 03:57 Alkaline Phosphatase 122 U/L (40-130) 02/16/23 03:57 Troponin T Baseline 18 ng/L (0-15) H 02/15/23 15:23 Troponin T 120 Minute 17.97 ng/L (0-15) H 02/15/23 17:09 Delta Troponin T -0.03 ABS# (0-10) L 02/15/23 17:09 Troponin T Hi Sens 6Hr 16.48 ng/L (0-15) H 02/15/23 20:59 Troponin T Hi Sens 6Hr Delta -1.52 ng/L (0-12) L 02/15/23 20:59 NT-Pro-B Natriuret Pep 654 pg/mL (0-125) H 02/15/23 15:23 Total Protein 5.7 g/dL (6.6-8.7) L 02/16/23 03:57 Albumin 2.6 g/dL (3.5-5.2) L 02/16/23 03:57 Globulin 3.1 g/dL (1.3-4.6) 02/16/23 03:57 Coronavirus 229E (PCR) Not detected (NOT DETECT) 02/15/23 15:39 Human Metapneumovir PCR Not detected (NOT DETECT) 02/15/23 17:53 Influenza Type A Ag negative (Negative) 02/15/23 00:20 Influenza Type B Ag negative (Negative) 02/15/23 00:20 Entero/Rhino (PCR) Detected (NOT DETECT) A 02/15/23 17:53 SARS-CoV-2 (PCR) Not detected (NOT DETECT) 02/15/23 15:39 Vitals Last Vital Signs Temp 97.7 F 02/17/23 07:56 Pulse 70 02/17/23 07:56 Resp 18 02/17/23 07:56 BP 140/79 02/17/23 07:56 Pulse Ox 96 02/17/23 07:56 O2 Del Method Nasal Cannula 02/17/23 07:56 O2 Flow Rate 2 02/17/23 08:00 FiO2 40 02/15/23 16:17 Discharge Plan Discharge Patient Disposition: Home Condition: Stable Prescriptions: New Eliquis DVT-PE Treat 30D Start 5 mg (74 tabs) tablets,dose pack See Rx Instructions .ROUTE .COMPLEX Qty: 74 0RF Rx Instructions: orally per package directions Continued Trelegy Ellipta 100-62.5-25 mcg blister with device 1 inh INHALATION DAILY albuterol sulfate 0.63 mg/3 mL solution for nebulization 0.63 mg INHALATION QID PRN (Reason: Shortness Of Breath) Combivent Respimat 20-100 mcg/actuation mist 1 puff inhalation Q6H tamsulosin 0.4 mg capsule 0.4 mg PO BID Qty: 180 3RF finasteride 5 mg tablet 5 mg PO QDAY Qty: 90 3RF fluoxetine 40 mg capsule 80 mg PO DAILY Discharge Orders: Discharge Order (Routine); Ordered 02/17/23 Ordered By: Janell Shetty Referrals: Mike Gold [Primary Care Provider] - 02/21/23 3:00 pm Discharge Diet: Cardiac Discharge Activity: Increase activity as tolerated Patient Instructions: Opioid Safety Activity Restrictions/Additional Instructions: Take Eliquis 10 mg twice a day for 7 days and then 5 mg twice a day for next 3 to 6 months for refills please call your PCP Discharge Attestations Time Spent in Discharge Care*: greater than 30 min Quality Metrics Clinical Quality Measures [ No reported AMI, CVA or VTE this stay] Coding Level of Care Code Acute Code for g Fwd Diagnoses Cancer of trigone of urinary bladder C67.0 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
--- NOTE | 2023-02-17 15:09 | PC.NURSE ---
patient verbalized understanding of discharge instructions, home medications, and follow up appointments. home o2 eval done and faxed to [facility]. currently waiting for [facility] to deliver portable tank; ETA [id number]
== END 2023-02-17 16:38 | disposition home or self-care (01) | DRG 175 ==
LOC: ER 20:01 → MEDSURG 20:53
PROVIDERS: Physician Assistant; Admitting Provider Internal Medicine; Emergency Provider Family Medicine; PCP Family Medicine; Visit Provider Internal Medicine
DX: I26.93 Single subsegmental thrombotic pulmonary embolism without acute cor pulmonale (principal); J18.9 Pneumonia, unspecified organism; N13.8 Other obstructive and reflux uropathy; I31.39 Other pericardial effusion (noninflammatory); J43.9 Emphysema, unspecified; Z99.81 Dependence on supplemental oxygen; Z87.891 Personal history of nicotine dependence; N40.1 Benign prostatic hyperplasia with lower urinary tract symptoms; M10.9 Gout, unspecified; I71.20 Thoracic aortic aneurysm, without rupture, unspecified; R09.02 Hypoxemia; J06.9 Acute upper respiratory infection, unspecified
CPT/HCPCS: 36415; 36600; 71045; 71275; 80048; 80051; 80053; 82330; 82805; 83605; 83880; 84484; 85007; 85025; 85378; 87040; 87070; 87077; 87205; 87635; 87801; 87804; 93005; 93306; 94640; 94660; 94664; 94760; 96365; 96367; 96372; 96375; 99285; 99291; C9113; J0456; J0696; J7030; J7050; J7512; J7626; Q0144; Q9967

== ENCOUNTER 2023-03-17 15:52 | Outpatient (CLI) | payer MEDICARE, MEDICAID, SELFPAY ==
--- NOTE | 2023-03-17 | CT_ITS ---
WS: [id number] CTA OF THE CHEST WITH PULMONARY EMBOLISM PROTOCOL TECHNIQUE: High-resolution contrast enhanced CTA of the chest with coronal and sagittal reformatted i nissas with pulmonary embolism protocol. MIP images are also reviewed. CLINICAL INFORMATION: PE COMPARISON: February 15, 2023 DLP: 351.[address] scans at [facility] use at least one of these dose optimization techniques: automated e xposure control; mA and/or kV adjustment per patient size (includes targeted exams where dose is matc hed to clinical indication); or iterative reconstruction. FINDINGS: Proximal main pulmonary arteries are normal. Previously described RIGHT lower lobe filling defect com patible with pulmonary embolus is again identified and similar in appearance. No evidence of new or p rogressive pulmonary embolus. Small pericardial effusion has improved. Normal caliber thoracic aorta. Aortic calcification. Coronar y calcification. Advanced chronic emphysematous changes. Tiny bilateral pleural effusions with compressive atelectasis in the lung bases. Airspace infiltrates in the lung bases appears slightly progressed compared to previous. Recommend correlation for pneumo ольга. A few calcified granulomas. Calcified LEFT hilar lymph nodes. No axillary lymphadenopathy. Promi nent previously described mediastinal hilar and peribronchial lymphadenopathy has improved. Persisten t but improved RIGHT hilar lymph nodes. Calcified splenic granulomas. Tiny esophageal hiatal hernia. Adrenal glands are normal. Mild thoracic kyphosis with hypertrophic changes in the thoracic spine. CT/CT angio chest PE protcl [id number] IMPRESSION: 1. Persistent RIGHT lower lobe segmental filling defect consistent with pulmon antonia embolus similar in appearance to the prior examination. No evidence of new or progressive embolus. 2. Proximal main pulmonary arteries are normal. 3. Small bilateral pleural effusions are new from previous with slightly progr essed airspace infiltrates in the lung bases. Recommend correlation for pneumon ia. 4. Advanced chronic emphysematous changes. 5. Improved small pericardial effusion. 6. Improved previously described mediastinal and hilar lymphadenopathy. Persis tent prominent but improved RIGHT greater than LEFT hilar lymph nodes. 7. Small esophageal hiatal hernia.
[2023-03-17] MEDS: iohexol 350 mg/mL 500 mL Btl (per mL) IV (16:10)
== END 2023-03-17 15:53 | disposition home or self-care (01) ==
PROVIDERS: PCP Family Medicine; Visit Provider Nurse Practitioner Family
DX: I26.99 Other pulmonary embolism without acute cor pulmonale (principal); J90 Pleural effusion, not elsewhere classified; I31.39 Other pericardial effusion (noninflammatory); R59.0 Localized enlarged lymph nodes; K44.9 Diaphragmatic hernia without obstruction or gangrene
CPT/HCPCS: 71275; Q9967

== ENCOUNTER 2023-08-16 12:51 | Outpatient (CLI) | payer MEDICARE, MEDICAID, SELFPAY ==
--- NOTE | 2023-08-16 13:04 | CTR_ITS ---
PROCEDURE INFORMATION: Exam: CT Chest With Contrast; Diagnostic Exam date and time: 08/16/2023 1:35 PM Age: 72 years old Clinical indication: Condition or disease; Lung condition and disease; Complications not specified; Patient HX: Chronic SOB and cough, copd, HX of pe on RT, pulmonary nodule TECHNIQUE: Imaging protocol: Diagnostic computed tomography of the chest with contrast. Radiation optimization: All CT scans at this facility use at least one of these dose optimization techniques: automated exposure control; mA and/or kV adjustment per patient size (includes targeted exams where dose is matched to clinical indication); or iterative reconstruction. Contrast material: OMNI 350; Contrast volume: 100 ml; Contrast route: INTRAVENOUS (IV); REPORTING DATA: Count of CT and Cardiac NM exams in prior 12 months: This patient has received 2 known CTs and 0 known cardiac nuclear medicine studies in the 12 months prior to the current study. COMPARISON: CT angio chest PE protcl [id number] 03/17/2023 4:21 PM RADIATION DOSE METRICS: Total DLP (mGy-cm): 372.26 FINDINGS: Lungs: Waxing and waning clustered nodularity in the right lower lobe such as on series 3 images 42-48 with largest partially calcified nodule measuring approximately 8 mm on image 48. This nodule does have somewhat irregular appearance on sagittal image 61. A few left-sided pulmonary nodules measure up to 5 mm in the left lower lobe such as on image 55. Severe emphysematous changes. Bibasilar scarring. Pleural spaces: No pneumothorax or pleural effusion. Heart: Coronary calcifications. No pericardial effusion. Lymph nodes: No enlarged lymph nodes. Vasculature: No aortic aneurysm. Bones/joints: No acute findings Soft tissues: Cholelithiasis. CT/CT chest w con* [id number] IMPRESSION: Bilateral pulmonary nodules, some waxing/waning and others unchanged. Given presence of emphysema recommend continued annual CT screening.
[2023-08-16] MEDS: iohexol 350 mg/mL 500 mL Btl (per mL) IV (13:40)
[2023-08-16 13:43] LABS: Blood Urea Nitrogen 16 mg/dL (8-23)
[2023-08-16 13:49] VITALS: PULSE 61; RESP 18; O2SAT 99
[2023-08-16 13:53] VITALS: PULSE 74
[2023-08-16] MEDS: albuterol 2.5 mg/3 mL Neb INHALATION (13:53)
== END 2023-08-16 12:52 | disposition home or self-care (01) ==
PROVIDERS: Radiology Diagnostic Radiology; PCP Family Medicine; Visit Provider Internal Medicine
DX: J44.9 Chronic obstructive pulmonary disease, unspecified (principal); E88.01 Alpha-1-antitrypsin deficiency; G47.34 Idiopathic sleep related nonobstructive alveolar hypoventilation; R91.1 Solitary pulmonary nodule; R59.0 Localized enlarged lymph nodes; R91.8 Other nonspecific abnormal finding of lung field
CPT/HCPCS: 71260; 82565; 84520; 94060; 94726; 94729; J7613; Q9967

== ENCOUNTER 2024-03-27 09:50 | Outpatient (CLI) | payer MEDICARE, MEDICAID, SELFPAY ==
--- NOTE | 2024-03-27 09:55 | CT_ITS ---
WS: [id number] LDCT LUNG CANCER SCREENING HISTORY: PERSONAL HX OF NICOTINE DEPENDENCE TECHNIQUE: Axial imaging performed from the apices to 1 cm below the costophrenic angles. Coronal and sagittal reformats are submitted with axial MIP series. All CT scans at [facility] use at least one of these dose optimization techniques: automated exposure control; mA and/or kV adjustment per patient size (includes targeted exams where dose is matched to clinical indication); or iterativ e reconstruction. DLP: 63.99 mGy.cm DIvol: Mean CTDIvol: 1.10 (mGy) COMPARISON: 08/16/2023 Diagnostic quality: Satisfactory Lungs: Centrilobular emphysema. Severe hyperexpansion. 4 mm noncalcified nodule LEFT lower lobe, imag e 240 of series 4, stable since 07/11/2020 CT. Additional areas of scarring and interstitial thickenin g. LEFT perifissural nodule, unchanged. Heart: Normal size heart with no pericardial effusion.. Small pericardial effusion. Other findings: Calcified LEFT hilar lymph nodes. No adenopathy. Mild atherosclerosis aorta. Small hi atal hernia. No adrenal mass. Mild thoracic spondylosis. No destructive bone lesions. CT/CT lung screening [id number] IMPRESSION: LUNG-RADS: 2-Benign Appearance or Behavior FOLLOW UP: 12 Month: Continue annual screening with LDCT OTHER FINDINGS (S MODIFIER): None.
== END 2024-03-27 09:51 | disposition home or self-care (01) ==
LOC: RAD 09:51
PROVIDERS: PCP Family Medicine; Visit Provider Internal Medicine
DX: R91.1 Solitary pulmonary nodule (principal); Z87.891 Personal history of nicotine dependence; Z12.2 Encounter for screening for malignant neoplasm of respiratory organs; J43.2 Centrilobular emphysema; J98.4 Other disorders of lung; I89.8 Other specified noninfective disorders of lymphatic vessels and lymph nodes; K44.9 Diaphragmatic hernia without obstruction or gangrene; M47.814 Spondylosis without myelopathy or radiculopathy, thoracic region
CPT/HCPCS: 71271